=== PATIENT | female | born 1965 | race Hispanic/Latino ===

== ENCOUNTER 2018-05-19 11:25 | Observation (INO) | payer OTHER, MEDICARE ==
[~2018-05-19] VITALS: Ht 154.9 cm; Wt 91.8 kg
[~2018-05-19 11:25] MED LIST: ACET1TAB25 PO; ALPR2TAB7 PO; ARIP10TA16 PO; ASPI-1197 PO; FLUC200T8 PO; GLIP5TAB11 PO; INSU100I21 SQ; INSU200I SQ; ISOS30TA6 PO; METF-446 PO; METO-408 PO; NITR100C PO; OMEP20CA10 PO; PRAV20TA4 PO; PREG75 PO; TAMS0.4C32 PO; TRAM50TA4 PO; TRAZ-185 PO
[2018-05-19 12:11] LABS: APPEARANCE,URINE Cloudy (CLEAR); BILIRUBIN,URINE Negative (NEGATIVE); COLOR,URINE Yellow (YELLOW); GLUCOSE, URINE (UA) 500 mg/dL (NEGATIVE); KETONES,URINE Negative (NEGATIVE); LEUKOCYTE ESTERASE ,URINE Large (NEGATIVE); NITRATE,URINE Negative (NEGATIVE); OCCULT BLOOD,URINE Large (NEGATIVE); PROTEIN,URINE POS 1+ (NEGATIVE); UROBILINOGEN,URINE 0.2 mg/dL (0.2-1.0)
[2018-05-19 12:21] LABS: BACTERIA,URINE Rare /HPF (None Seen); MUCUS,URINE Rare LPF (None Seen); SQUAMOUS EPITHELIAL CELL,UR Rare /HPF (0-2); WBC,URINE 51-100 /HPF (0-1); YEAST,URINE BUDDING Few /HPF (None Seen)
[2018-05-19 15:31] LABS: CREATININE 0.6 mg/dL (0.5-1.5); POTASSIUM 3.7 mmol/L (3.5-5.1)
[2018-05-19 15:33] LABS: ALBUMIN 3.2 g/dL (3.5-5.0); BILIRUBIN,TOTAL 0.7 mg/dL (0.2-1.0); TOTAL PROTEIN, SERUM 7.2 g/dL (6.0-8.3)
[2018-05-19 15:47] LABS: BASOPHILS % (AUTO) 0.8 % (0.0-5.0); EOSINOPHILS % (AUTO) 2.6 % (0.0-8.0); HEMATOCRIT 37.1 % (36-48); LYMPHOCYTES % (AUTO) 46.3 % (21.0-51.0); MEAN CORPUSCULAR HEMOGLOBIN 30.5 pg (27.0-33.0); MEAN CORPUSCULAR HGB CONC 33.8 g/dL (32.0-36.0); MEAN CORPUSCULAR VOLUME 90.2 fL (79-99); MONOCYTES % (AUTO) 8.3 % (3.0-13.0); PLATELET COUNT (AUTO) 125 K/uL (130-400); RED BLOOD CELL COUNT(AUTO) 4.12 MIL/uL (4.00-5.50); RED CELL DISTRIBUTION WIDTH 13.6 % (11.0-15.5); WHITE BLOOD COUNT (AUTO) 7.4 K/uL (4.8-10.8)
[2018-05-19] MEDS ORDERED: IOHEXOL-350 75 ML VIAL IV ONE (16:10)
[2018-05-19] MEDS ORDERED: CEFTRIAXONE SODIUM 1 GM ONE (17:19)
[2018-05-19] MEDS ORDERED: TAMSULOSIN HCL 0.4 MG CAP.ER.24H ONE (17:19)
[2018-05-19] MEDS ORDERED: SODIUM CHLORIDE 0.9% 1000ML 1,000 ML IV ONE (17:19)
[2018-05-19 18:49] VITALS: BP 134/61
[2018-05-19] MEDS ORDERED: 1/2 NORMAL SALINE 1,000 ML IV SCH (19:00)
[2018-05-19 19:20] VITALS: BP 132/86
[2018-05-19] MEDS: ACETAMINOPHEN 325 MG TAB PO PRN (20:27)
[2018-05-19] MEDS ORDERED: TRAMADOL HCL 50 MG TABLET PO SCH (20:30)
[2018-05-19] MEDS ORDERED: BUSP10TA3 PO (20:33)
[2018-05-19] MEDS ORDERED: CEPH500C2 PO (20:33)
[2018-05-19] MEDS ORDERED: EXEN2PEN SQ (20:39)
[2018-05-19] MEDS ORDERED: INSU100I24 SQ (20:39)
[2018-05-19] MEDS ORDERED: INSULIN LISPRO 100 UNIT/ML 3ML SQ SCH (21:00)
[2018-05-19] MEDS ORDERED: ATORVASTATIN CALCIUM 10 MG TABLET PO SCH (21:00)
[2018-05-19] MEDS: BUSPIRONE HCL 5 MG TABLET PO SCH (22:34)
[2018-05-19] MEDS: METOPROLOL TARTRATE 25 MG TAB PO SCH (22:34)
[2018-05-19 23:10] VITALS: BP 110/67
[2018-05-20] VITALS (23 sets, daily range): BP systolic 105–151; BP diastolic 44–89
[2018-05-20] MEDS: INSULIN LISPRO 100 UNIT/ML 3ML SQ SCH ×2 (06:41→16:30)
[2018-05-20] MEDS: METFORMIN HCL 500 MG TABLET PO SCH ×2 (08:00→17:00)
[2018-05-20] MEDS: METOPROLOL TARTRATE 25 MG TAB PO SCH (08:14)
[2018-05-20] MEDS: BUSPIRONE HCL 5 MG TABLET PO SCH (08:40)
[2018-05-20] MEDS: ACETAMINOPHEN 325 MG TAB PO PRN ×2 (08:45→13:33)
[2018-05-20] MEDS ORDERED: ASPIRIN 81MG TAB.CHEW PO SCH (09:00)
[2018-05-20] MEDS ORDERED: CEFTRIAXONE SODIUM 1 GM IVP SCH (09:00)
[2018-05-20] MEDS ORDERED: Insulin Degludec (Tresiba Flextouch U-100) SQ SCH (09:00)
[2018-05-20] MEDS ORDERED: ISOSORBIDE MONO 30MG TAB SR PO SCH (09:00)
[2018-05-20] MEDS ORDERED: SODIUM CHLORIDE 0.9% 1000ML 1,000 ML IV ONE (09:57)
[2018-05-20] MEDS ORDERED: LIDOCAINE PF 2% 5ML ABBOJECT ONE (10:13)
[2018-05-20] MEDS ORDERED: FENTANYL CITRATE PF 50 MCG/1 ML 2ML VIAL ONE (10:13)
[2018-05-20] MEDS ORDERED: MIDAZOLAM HCL 1 MG/ML 2ML VIAL ONE (10:13)
[2018-05-20] MEDS ORDERED: SUCCINYLCHOLINE CHLORIDE 20 MG/ML 10 ML VIAL ONE (10:13)
[2018-05-20] MEDS ORDERED: ROCURONIUM BROMIDE 10MG/1ML 5ML VL ONE (10:13)
[2018-05-20] MEDS ORDERED: PROPOFOL 10 MG/ML 20ML VIAL IV ONE (10:13)
[2018-05-20] MEDS ORDERED: IOHEXOL-350 50ML VIAL IV ONE (10:33)
[2018-05-20] MEDS ORDERED: EPHEDRINE SULFATE 50 MG/ML AMPULE ONE (10:35)
[2018-05-20] MEDS ORDERED: MORPHINE SULFATE 4 MG/1ML SYG ONE (11:23)
[2018-05-21] MEDS ORDERED: PRAV20TA4 PO (11:54)
[2018-05-21] MEDS ORDERED: PREG150C PO (11:54)
[2018-05-21] MEDS ORDERED: TYL3 PO (11:54)
[2018-05-21] MEDS ORDERED: ISOS10TA8 PO (11:54)
[2018-05-21] MEDS ORDERED: ASPI-555 PO (11:54)
[2018-05-21] MEDS ORDERED: CEPH-578 PO (11:54)
[2018-05-21] MEDS ORDERED: BUSP10TA3 PO (11:54)
[2018-05-21] MEDS ORDERED: EXEN2PEN SQ (11:54)
[2018-05-21] MEDS ORDERED: TAMS0.4C32 PO (11:54)
[2018-05-21] MEDS ORDERED: INSU100I24 SQ (11:54)
[2018-05-21] MEDS ORDERED: METF-446 PO (11:54)
[2018-05-21] MEDS ORDERED: METO-408 PO (11:54)
[2018-05-26] MEDS ORDERED: Exenatide Microspheres (Bydureon Pen) 2 MG SQ SCH (09:00)
== END 2018-05-20 18:00 | disposition home or self-care (01) ==
LOC: EDH 11:25 → 4BH 17:20
PROVIDERS: ADMIT Internal Medicine; ATTEND Internal Medicine
DX: N13.2 Hydronephrosis with renal and ureteral calculous obstruction (principal); R31.0 Gross hematuria; E11.9 Type 2 diabetes mellitus without complications; I10 Essential (primary) hypertension; E78.5 Hyperlipidemia, unspecified; E66.9 Obesity, unspecified; I25.10 Atherosclerotic heart disease of native coronary artery without angina pectoris; J44.9 Chronic obstructive pulmonary disease, unspecified; M79.7 Fibromyalgia; Z87.442 Personal history of urinary calculi; Z90.710 Acquired absence of both cervix and uterus; Z96.653 Presence of artificial knee joint, bilateral; Z79.899 Other long term (current) drug therapy
CPT/HCPCS: 36415; 52356; 74178; 74420; 80053; 81001; 82948 ×4; 85025; 87088; 96374; 99285; A4218; A4358; A6207; C1758; C1769; C1894; C2617; G0378 ×25; J0330; J0696 ×2; J2001; J2250; J2270; J2704; J3010; J3490 ×2; J7030 ×3; Q9967 ×2

== ENCOUNTER 2018-05-21 10:50 | Inpatient (IN) | payer OTHER, MEDICARE ==
[~2018-05-21] VITALS: Ht 154.9 cm; Wt 94.0 kg
[~2018-05-21 10:50] MED LIST changes: -ACET1TAB25 PO; -ALPR2TAB7 PO; -ARIP10TA16 PO; +BUSP10TA3 PO; +CEPH500C2 PO; +EXEN2PEN SQ; -FLUC200T8 PO; -GLIP5TAB11 PO; -INSU100I21 SQ; +INSU100I24 SQ; -INSU200I SQ; -NITR100C PO; -OMEP20CA10 PO; -PREG75 PO; -TAMS0.4C32 PO; -TRAM50TA4 PO; -TRAZ-185 PO
[2018-05-21 11:41] VITALS: BP 128/85
[2018-05-21] MEDS ORDERED: CEPH-578 PO (11:54)
[2018-05-21] MEDS ORDERED: PREG150C PO (11:54)
[2018-05-21] MEDS ORDERED: ISOS10TA8 PO (11:54)
[2018-05-21] MEDS ORDERED: PRAV20TA4 PO (11:54)
[2018-05-21] MEDS ORDERED: ASPI-555 PO (11:54)
[2018-05-21] MEDS ORDERED: METO-408 PO (11:54)
[2018-05-21] MEDS ORDERED: BUSP10TA3 PO (11:54)
[2018-05-21] MEDS ORDERED: TAMS0.4C32 PO (11:54)
[2018-05-21] MEDS ORDERED: EXEN2PEN SQ (11:54)
[2018-05-21] MEDS ORDERED: METF-446 PO (11:54)
[2018-05-21] MEDS ORDERED: INSU100I24 SQ (11:54)
[2018-05-21] MEDS ORDERED: TYL3 PO (11:54)
[2018-05-21] MEDS ORDERED: DIPHENHYDRAMINE HCL 25 MG CAPSULE PO PRN (12:00)
[2018-05-21] MEDS ORDERED: ONDANSETRON HCL 4 MG/2 ML VIAL IVP PRN (12:00)
[2018-05-21] MEDS ORDERED: ACETAMINOPHEN 325 MG TAB PO PRN (12:00)
[2018-05-21] MEDS ORDERED: GUAIFENESIN-DM 200/20 MG 10 ML PO PRN (12:00)
[2018-05-21] MEDS ORDERED: ZOLPIDEM TARTRATE 5 MG TAB PO PRN (12:00)
[2018-05-21] MEDS ORDERED: SODIUM CHLORIDE 0.9% 10 ML VIAL IVP SCH (12:00)
[2018-05-21] MEDS ORDERED: NITROGLYCERIN 0.4 MG SL TAB SL PRN (12:00)
[2018-05-21] MEDS ORDERED: CLONIDINE HCL 0.1 MG TABLET PO PRN (12:00)
[2018-05-21] MEDS ORDERED: LACTULOSE 20 GM/30 ML UDCUP PO PRN (12:00)
[2018-05-21] MEDS ORDERED: 1/2 NORMAL SALINE 1,000 ML IV ONE (12:14)
[2018-05-21] MEDS ORDERED: DEXTROSE 50%-WATER 50 ML DISP.SYRIN IV PRN (12:15)
[2018-05-21] MEDS ORDERED: GLUCAGON 1MG KIT 1 MG ML IM PRN (12:15)
[2018-05-21 12:24] LABS: BASOPHILS % (AUTO) 0.4 % (0.0-5.0); EOSINOPHILS % (AUTO) 0.1 % (0.0-8.0); HEMATOCRIT 40.7 % (36-48); LYMPHOCYTES % (AUTO) 7.2 % (21.0-51.0); MEAN CORPUSCULAR HEMOGLOBIN 30.7 pg (27.0-33.0); MEAN CORPUSCULAR HGB CONC 34.2 g/dL (32.0-36.0); MEAN CORPUSCULAR VOLUME 89.8 fL (79-99); MONOCYTES % (AUTO) 6.1 % (3.0-13.0); NEUTROPHILS % (AUTO) 86.2 % (40.0-77.0); PLATELET COUNT (AUTO) 102 K/uL (130-400); RED BLOOD CELL COUNT(AUTO) 4.53 MIL/uL (4.00-5.50); RED CELL DISTRIBUTION WIDTH 13.5 % (11.0-15.5); WHITE BLOOD COUNT (AUTO) 7.8 K/uL (4.8-10.8)
[2018-05-21 12:54] LABS: APPEARANCE,URINE Cloudy (CLEAR); BILIRUBIN,URINE Small (NEGATIVE); COLOR,URINE Dark Yellow (YELLOW); GLUCOSE, URINE (UA) TRACE mg/dL (NEGATIVE); KETONES,URINE >=80 mg/dL (NEGATIVE); LEUKOCYTE ESTERASE ,URINE Moderate (NEGATIVE); NITRATE,URINE Negative (NEGATIVE); OCCULT BLOOD,URINE Large (NEGATIVE); PH,URINE 5.5 (5.0-8.0); PROTEIN,URINE 300 (NEGATIVE)
[2018-05-21 12:55] LABS: ALBUMIN 3.4 g/dL (3.5-5.0); BILIRUBIN,DIRECT 0.2 mg/dL (0.0-0.3); BILIRUBIN,TOTAL 0.9 mg/dL (0.2-1.0); CREATININE 0.8 mg/dL (0.5-1.5); POTASSIUM 3.9 mmol/L (3.5-5.1); TOTAL PROTEIN, SERUM 7.7 g/dL (6.0-8.3)
[2018-05-21] MEDS ORDERED: ACETAMINOPHEN-CODEINE 300/30MG TAB PO PRN (13:00)
[2018-05-21 13:06] LABS: RBC,URINE >100 /HPF (0-1)
[2018-05-21 13:07] LABS: BACTERIA,URINE Few /HPF (None Seen)
[2018-05-21 13:08] LABS: MUCUS,URINE Moderate LPF (None Seen); SQUAMOUS EPITHELIAL CELL,UR Moderate /HPF (0-2)
[2018-05-21 13:09] LABS: WBC,URINE 26-50 /HPF (0-1)
[2018-05-21] MEDS ORDERED: ACETAMINOPHEN-CODEINE 300/30MG TAB ONE (13:13)
[2018-05-21] MEDS: LEVOFLOXACIN 500 MG/D5W 100 ML 100 ML IV SCH (13:14)
[2018-05-21] MEDS: 1/2 NORMAL SALINE 1,000 ML IV SCH (13:18)
[2018-05-21 16:00] VITALS: BP 124/65
[2018-05-21] MEDS: INSULIN R PO SSI SQ SCH ×2 (16:30→21:00)
[2018-05-21] MEDS: METFORMIN HCL 500 MG TABLET PO SCH (17:00)
[2018-05-21] MEDS: MORPHINE SULFATE 5 MG/ML VIAL IV PRN ×2 (17:43→23:41)
[2018-05-21 20:00] VITALS: BP 146/84
[2018-05-21 20:12] VITALS: BP 115/82
[2018-05-21] MEDS: CEPHALEXIN 500 MG CAPSULE PO SCH (20:26)
[2018-05-21] MEDS: BUSPIRONE HCL 5 MG TABLET PO SCH (20:26)
[2018-05-21] MEDS: SIMVASTATIN 20 MG TABLET PO SCH (20:27)
[2018-05-21] MEDS: PREGABALIN 75 MG CAPSULE PO SCH (20:27)
[2018-05-21] MEDS: METOPROLOL TARTRATE 25 MG TAB PO SCH (20:27)
[2018-05-22 00:32] VITALS: BP 119/83
[2018-05-22] MEDS: 1/2 NORMAL SALINE 1,000 ML IV SCH ×2 (03:58→13:09)
[2018-05-22 04:30] LABS: BASOPHILS % (AUTO) 0.3 % (0.0-5.0); EOSINOPHILS % (AUTO) 0.1 % (0.0-8.0); HEMATOCRIT 40.2 % (36-48); LYMPHOCYTES % (AUTO) 15.9 % (21.0-51.0); MEAN CORPUSCULAR HEMOGLOBIN 29.4 pg (27.0-33.0); MEAN CORPUSCULAR HGB CONC 33.1 g/dL (32.0-36.0); MEAN CORPUSCULAR VOLUME 88.8 fL (79-99); MONOCYTES % (AUTO) 7.5 % (3.0-13.0); NEUTROPHILS % (AUTO) 76.2 % (40.0-77.0); NUCLEATED RED BLOOD CELLS 0.1 % (0.0-0.19); PLATELET COUNT (AUTO) 80 K/uL (130-400); RED BLOOD CELL COUNT(AUTO) 4.53 MIL/uL (4.00-5.50); RED CELL DISTRIBUTION WIDTH 13.4 % (11.0-15.5); WHITE BLOOD COUNT (AUTO) 6.7 K/uL (4.8-10.8)
[2018-05-22 04:32] VITALS: BP 129/86
[2018-05-22 05:11] LABS: BILIRUBIN,DIRECT 0.2 mg/dL (0.0-0.3); BILIRUBIN,TOTAL 0.8 mg/dL (0.2-1.0); CREATININE 0.6 mg/dL (0.5-1.5); POTASSIUM 3.6 mmol/L (3.5-5.1); TOTAL PROTEIN, SERUM 7.1 g/dL (6.0-8.3)
[2018-05-22] MEDS: MORPHINE SULFATE 5 MG/ML VIAL IV PRN (06:19)
[2018-05-22] MEDS: INSULIN R PO SSI SQ SCH ×4 (06:53→20:32)
[2018-05-22 08:00] VITALS: BP 142/86
[2018-05-22] MEDS: METFORMIN HCL 500 MG TABLET PO SCH ×3 (08:00→17:09)
[2018-05-22] MEDS: INSULIN DEGLUDEC 75 UNIT SQ SCH (08:00)
[2018-05-22] MEDS: CEPHALEXIN 500 MG CAPSULE PO SCH ×2 (09:00→20:26)
[2018-05-22] MEDS ORDERED: PANTOPRAZOLE 40 MG/VIAL IVP SCH (09:00)
[2018-05-22] MEDS: ISOSORBIDE MONONITRATE 10 MG PO SCH (09:00)
[2018-05-22] MEDS: METOPROLOL TARTRATE 25 MG TAB PO SCH ×2 (09:10→20:26)
[2018-05-22] MEDS: ENOXAPARIN SODIUM 30 MG/0.3 ML SQ SCH (09:10)
[2018-05-22] MEDS: TAMSULOSIN HCL 0.4 MG CAP.ER.24H PO SCH (09:10)
[2018-05-22] MEDS: ASPIRIN 81 MG EC TAB PO SCH (09:13)
[2018-05-22] MEDS: BUSPIRONE HCL 5 MG TABLET PO SCH ×2 (09:13→20:26)
[2018-05-22] MEDS: PREGABALIN 75 MG CAPSULE PO SCH ×2 (09:16→20:26)
[2018-05-22 11:00] VITALS: BP 110/77
[2018-05-22] MEDS: LEVOFLOXACIN 500 MG/D5W 100 ML 100 ML IV SCH (11:39)
[2018-05-22] MEDS ORDERED: KETOROLAC TROMETHAMINE 30MG/ML ONE (13:00)
[2018-05-22] MEDS ORDERED: KETOROLAC TROMETHAMINE 30MG/ML IV ONE (14:00)
[2018-05-22 16:00] VITALS: BP 115/68
[2018-05-22 20:00] VITALS: BP 127/79
[2018-05-22] MEDS: SIMVASTATIN 20 MG TABLET PO SCH (20:27)
[2018-05-23] VITALS: BP 123/81
[2018-05-23 04:00] VITALS: BP 114/77
[2018-05-23] MEDS: 1/2 NORMAL SALINE 1,000 ML IV SCH (04:05)
[2018-05-23 04:17] LABS: HEMATOCRIT 37.4 % (36-48); MEAN CORPUSCULAR HEMOGLOBIN 30.7 pg (27.0-33.0); MEAN CORPUSCULAR HGB CONC 34.1 g/dL (32.0-36.0); MEAN CORPUSCULAR VOLUME 89.8 fL (79-99); PLATELET COUNT (AUTO) 95 K/uL (130-400); RED BLOOD CELL COUNT(AUTO) 4.16 MIL/uL (4.00-5.50); RED CELL DISTRIBUTION WIDTH 13.5 % (11.0-15.5); WHITE BLOOD COUNT (AUTO) 6.3 K/uL (4.8-10.8)
[2018-05-23 04:24] LABS: CREATININE 0.7 mg/dL (0.5-1.5); POTASSIUM 3.3 mmol/L (3.5-5.1)
[2018-05-23] MEDS: MORPHINE SULFATE 5 MG/ML VIAL IV PRN ×2 (04:24→10:52)
[2018-05-23] MEDS: INSULIN R PO SSI SQ SCH (05:44)
[2018-05-23] MEDS ORDERED: POTASSIUM CHLORIDE 20 MEQ ERTAB PO ONE (06:11)
[2018-05-23] MEDS ORDERED: POTASSIUM CHLORIDE 20 MEQ ERTAB PO PRN (06:15)
[2018-05-23] MEDS ORDERED: POTASSIUM CHLORIDE 20MEQ/100ML 100 ML IV PRN (06:15)
[2018-05-23] MEDS ORDERED: LIDOCAINE HCL-MPF 1% 2ML VIAL IVP PRN (06:15)
[2018-05-23 08:00] VITALS: BP 128/85
[2018-05-23] MEDS: INSULIN DEGLUDEC 75 UNIT SQ SCH (08:00)
[2018-05-23] MEDS ORDERED: PANTOPRAZOLE SODIUM 40 MG TABLET.DR PO SCH (09:00)
[2018-05-23] MEDS: ISOSORBIDE MONONITRATE 10 MG PO SCH (09:00)
[2018-05-23] MEDS: BUSPIRONE HCL 5 MG TABLET PO SCH (09:15)
[2018-05-23] MEDS: METOPROLOL TARTRATE 25 MG TAB PO SCH (09:16)
[2018-05-23] MEDS: CEPHALEXIN 500 MG CAPSULE PO SCH (09:17)
[2018-05-23] MEDS: TAMSULOSIN HCL 0.4 MG CAP.ER.24H PO SCH (09:17)
[2018-05-23] MEDS: METFORMIN HCL 500 MG TABLET PO SCH (09:17)
[2018-05-23] MEDS: PREGABALIN 75 MG CAPSULE PO SCH (09:18)
[2018-05-23] MEDS: ASPIRIN 81 MG EC TAB PO SCH (09:18)
[2018-05-23] MEDS: ENOXAPARIN SODIUM 30 MG/0.3 ML SQ SCH (10:54)
[2018-05-23 11:00] VITALS: BP 105/56
[2018-05-23] MEDS: LEVOFLOXACIN 500 MG/D5W 100 ML 100 ML IV SCH (13:16)
[2018-05-28] MEDS ORDERED: Exenatide Microspheres (Bydureon Pen) 2 MG SQ SCH (09:00)
== END 2018-05-23 15:20 | disposition home or self-care (01) | DRG 699 ==
LOC: EDH 10:50 → 4BH 10:51 → OBSVTOIN 10:51 → 4CH 05-22 06:18
PROVIDERS: ADMIT Internal Medicine; ATTEND Internal Medicine
DX: N99.521 Infection of incontinent external stoma of urinary tract (principal); N12 Tubulo-interstitial nephritis, not specified as acute or chronic; E11.9 Type 2 diabetes mellitus without complications; E78.5 Hyperlipidemia, unspecified; I10 Essential (primary) hypertension; I25.10 Atherosclerotic heart disease of native coronary artery without angina pectoris; J44.9 Chronic obstructive pulmonary disease, unspecified; M79.7 Fibromyalgia; Z87.442 Personal history of urinary calculi; Z90.710 Acquired absence of both cervix and uterus; Y83.9 Surgical procedure, unspecified as the cause of abnormal reaction of the patient, or of later complication, without mention of misadventure at the time of the procedure
CPT/HCPCS: 36415; 76770; 80048; 80053; 80076; 81001; 82948; 85025; 85027; 87088; C9113; J1650; J1885; J1956; J2270

== ENCOUNTER 2018-12-27 19:58 | Emergency (ER) | payer OTHER, MEDICARE ==
[~2018-12-27 19:58] MED LIST changes: +ASPI-555 PO; +CEPH-578 PO; +ISOS10TA8 PO; +PREG150C PO; +TAMS0.4C32 PO; +TYL3 PO
[2018-12-27 20:41] LABS: INR 1.02 (0.85-1.15); PARTIAL THROMBOPLASTIN TIME 26.8 SEC (26.3-35.5); PROTHROMBIN TIME 10.7 SEC (9.6-11.6)
[2018-12-27 20:44] LABS: BASOPHILS % (AUTO) 0.7 % (0.0-5.0); EOSINOPHILS % (AUTO) 3.9 % (0.0-8.0); HEMATOCRIT 40.6 % (36-48); MEAN CORPUSCULAR HEMOGLOBIN 30.2 pg (27.0-33.0); MEAN CORPUSCULAR HGB CONC 33.6 g/dL (32.0-36.0); MEAN CORPUSCULAR VOLUME 89.8 fL (79-99); MONOCYTES % (AUTO) 7.4 % (3.0-13.0); NUCLEATED RED BLOOD CELLS 0.1 % (0.0-0.19); PLATELET COUNT (AUTO) 132 K/uL (130-400); RED BLOOD CELL COUNT(AUTO) 4.52 MIL/uL (4.00-5.50); RED CELL DISTRIBUTION WIDTH 13.4 % (11.0-15.5); WHITE BLOOD COUNT (AUTO) 6.7 K/uL (4.8-10.8)
[2018-12-27 20:49] LABS: CREATININE 0.8 mg/dL (0.5-1.5); POTASSIUM 3.6 mmol/L (3.5-5.1)
[2018-12-27 20:54] LABS: ALBUMIN 3.7 g/dL (3.5-5.0); BILIRUBIN,TOTAL 0.9 mg/dL (0.2-1.0); TOTAL PROTEIN, SERUM 7.9 g/dL (6.0-8.3)
[2018-12-27] MEDS ORDERED: KETOROLAC TROMETHAMINE 30MG/ML ONE (21:04)
[2018-12-27] MEDS ORDERED: FAMOTIDINE/PF 20 MG/2 ML VIAL IV ONE (21:04)
[2018-12-27 22:23] LABS: APPEARANCE,URINE Clear (CLEAR); BILIRUBIN,URINE Negative (NEGATIVE); COLOR,URINE Yellow (YELLOW); GLUCOSE, URINE (UA) 250 mg/dL (NEGATIVE); KETONES,URINE Negative (NEGATIVE); LEUKOCYTE ESTERASE ,URINE Negative (NEGATIVE); NITRATE,URINE Negative (NEGATIVE); OCCULT BLOOD,URINE Negative (NEGATIVE); PROTEIN,URINE Negative (NEGATIVE)
[2018-12-27 22:45] LABS: BACTERIA,URINE None Seen /HPF (None Seen); MUCUS,URINE Rare LPF (None Seen); RBC,URINE None Seen /HPF (0-1); SQUAMOUS EPITHELIAL CELL,UR Few /HPF (0-2); WBC,URINE None Seen /HPF (0-1); YEAST,URINE BUDDING None Seen /HPF (None Seen)
[2018-12-27] MEDS ORDERED: METOCLOPRAMIDE 10 MG/2 ML VIAL ONE (22:53)
[2018-12-27] MEDS ORDERED: DiphenhydrAMINE HCL 50 MG/ML VIAL ONE (22:54)
== END 2018-12-27 23:40 | disposition home or self-care (01) ==
LOC: EDH 19:58
DX: M54.5 Low back pain (principal); R10.13 Epigastric pain; E11.9 Type 2 diabetes mellitus without complications; E78.5 Hyperlipidemia, unspecified; I10 Essential (primary) hypertension; M79.7 Fibromyalgia; Z98.890 Other specified postprocedural states; Z87.442 Personal history of urinary calculi; Z90.710 Acquired absence of both cervix and uterus; Z90.49 Acquired absence of other specified parts of digestive tract
CPT/HCPCS: 36415; 74176; 80053; 81001; 82550; 83605; 83690; 84484; 85025; 85610; 85730; 96361; 96374; 96375; 99285; J1200; J1885; J2765; J3490

== ENCOUNTER → 2019-03-18 | Outpatient (CLI) | payer OTHER, MEDICARE | END | disposition home or self-care (01) | LOC: RAH 11:12 | PROVIDERS: ATTEND Orthopaedic Surgery | DX: M79.89 Other specified soft tissue disorders (principal); Z96.652 Presence of left artificial knee joint | CPT/HCPCS: 73700 ==

== ENCOUNTER 2019-06-18 12:33 | Emergency (ER) | payer OTHER, MEDICARE ==
[2019-06-18] MEDS ORDERED: ONDANSETRON HCL 4 MG/2 ML VIAL ONE (13:14)
[2019-06-18] MEDS ORDERED: KETOROLAC TROMETHAMINE 30MG/ML ONE (13:14)
[2019-06-18] MEDS ORDERED: SODIUM CHLORIDE 0.9% 1000ML 1,000 ML IV ONE (13:14)
[2019-06-18] MEDS ORDERED: ACETAMINOPHEN EXTRA STRENGTH 500 MG TABLET ONE (13:14)
[2019-06-18 13:16] LABS: CREATININE 0.7 mg/dL (0.5-1.5); POTASSIUM 4.2 mmol/L (3.5-5.1)
[2019-06-18 13:17] LABS: APPEARANCE,URINE Clear (CLEAR); BILIRUBIN,URINE Negative (NEGATIVE); COLOR,URINE Yellow (YELLOW); GLUCOSE, URINE (UA) >=1000 mg/dL (NEGATIVE); KETONES,URINE Negative (NEGATIVE); LEUKOCYTE ESTERASE ,URINE Negative (NEGATIVE); NITRATE,URINE Negative (NEGATIVE); OCCULT BLOOD,URINE Negative (NEGATIVE); PROTEIN,URINE Negative (NEGATIVE); UROBILINOGEN,URINE 0.2 mg/dL (0.2-1.0)
[2019-06-18 13:20] LABS: ALBUMIN 3.5 g/dL (3.5-5.0); BILIRUBIN,TOTAL 0.6 mg/dL (0.2-1.0); TOTAL PROTEIN, SERUM 7.8 g/dL (6.0-8.3)
[2019-06-18 13:34] LABS: EOSINOPHILS % (AUTO) 1.8 % (0.0-8.0); HEMATOCRIT 41.8 % (36-48); LYMPHOCYTES % (AUTO) 37.1 % (21.0-51.0); MEAN CORPUSCULAR HEMOGLOBIN 29.6 pg (27.0-33.0); MEAN CORPUSCULAR HGB CONC 33.6 g/dL (32.0-36.0); MEAN CORPUSCULAR VOLUME 88.1 fL (79-99); MONOCYTES % (AUTO) 6.2 % (3.0-13.0); NEUTROPHILS % (AUTO) 53.9 % (40.0-77.0); PLATELET COUNT (AUTO) 125 K/uL (130-400); RED BLOOD CELL COUNT(AUTO) 4.75 MIL/uL (4.00-5.50); RED CELL DISTRIBUTION WIDTH 12.9 % (11.0-15.5); WHITE BLOOD COUNT (AUTO) 6.8 K/uL (4.8-10.8)
[2019-06-18 13:43] LABS: BACTERIA,URINE Few /HPF (None Seen); RBC,URINE 0-1 /HPF (0-1); WBC,URINE 0-1 /HPF (0-1)
[2019-06-18] MEDS ORDERED: ORPHENADRINE CITRATE 30 MG/ML ML ONE (15:11)
== END 2019-06-18 15:41 | disposition home or self-care (01) ==
LOC: EDH 12:33
DX: R10.9 Unspecified abdominal pain (principal); E11.9 Type 2 diabetes mellitus without complications; E78.5 Hyperlipidemia, unspecified; I10 Essential (primary) hypertension; Z87.442 Personal history of urinary calculi; Z87.891 Personal history of nicotine dependence
CPT/HCPCS: 36415; 74176; 80053; 81001; 83690; 85025; 93005; 96372; 96374; 96375; 99285; J1885; J2360; J2405; J7030

== ENCOUNTER 2019-10-02 09:19 | Emergency (ER) | payer OTHER, MEDICARE ==
[2019-10-02 09:59] LABS: BASOPHILS % (AUTO) 0.8 % (0.0-5.0); EOSINOPHILS % (AUTO) 2.3 % (0.0-8.0); HEMATOCRIT 39.3 % (36-48); LYMPHOCYTES % (AUTO) 41.4 % (21.0-51.0); MEAN CORPUSCULAR HEMOGLOBIN 28.2 pg (27.0-33.0); MEAN CORPUSCULAR HGB CONC 32.3 g/dL (32.0-36.0); MEAN CORPUSCULAR VOLUME 87.1 fL (79-99); MONOCYTES % (AUTO) 7.7 % (3.0-13.0); NEUTROPHILS % (AUTO) 47.6 % (40.0-77.0); PLATELET COUNT (AUTO) 135 K/uL (130-400); RED BLOOD CELL COUNT(AUTO) 4.51 MIL/uL (4.00-5.50); WHITE BLOOD COUNT (AUTO) 6.1 K/uL (4.8-10.8)
[2019-10-02 10:10] LABS: CREATININE 0.5 mg/dL (0.5-1.5)
[2019-10-02 10:14] LABS: ALBUMIN 3.9 g/dL (3.5-5.0); BILIRUBIN,TOTAL 0.9 mg/dL (0.2-1.0)
[2019-10-02] MEDS ORDERED: KETOROLAC TROMETHAMINE 15MG/ML ONE (10:57)
[2019-10-02] MEDS ORDERED: ONDANSETRON HCL 4 MG/2 ML VIAL ONE (10:57)
[2019-10-02 11:01] LABS: APPEARANCE,URINE CLEAR (CLEAR); BILIRUBIN,URINE NEGATIVE (NEGATIVE); COLOR,URINE YELLOW (YELLOW); GLUCOSE, URINE (UA) NEGATIVE (NEGATIVE); KETONES,URINE NEGATIVE (NEGATIVE); LEUKOCYTE ESTERASE ,URINE NEGATIVE (NEGATIVE); NITRATE,URINE NEGATIVE (NEGATIVE); OCCULT BLOOD,URINE NEGATIVE (NEGATIVE); PH,URINE 6.5 (5.0-8.0); PROTEIN,URINE NEGATIVE (NEGATIVE); UROBILINOGEN,URINE 0.2 mg/dL (0.2-1.0)
[2019-10-02] MEDS ORDERED: SODIUM CHLORIDE 0.9% 1000ML 1,000 ML IV ONE (11:01)
== END 2019-10-02 12:15 | disposition home or self-care (01) ==
LOC: EDH 09:19
DX: N20.0 Calculus of kidney (principal); E11.9 Type 2 diabetes mellitus without complications; I10 Essential (primary) hypertension; M79.7 Fibromyalgia; E78.5 Hyperlipidemia, unspecified; M81.0 Age-related osteoporosis without current pathological fracture; Z90.710 Acquired absence of both cervix and uterus
CPT/HCPCS: 36415; 74176; 80053; 81003; 81025; 83690; 84484; 85025; 93005; 96374; 96375; 99285; J1885; J2405; J7030

== ENCOUNTER 2020-04-30 18:13 | Emergency (ER) | payer OTHER, MEDICARE ==
[~2020-04-30 18:13] MED LIST changes: -ASPI-555 PO; +ASPI-556 PO
[2020-04-30] MEDS ORDERED: SODIUM CHLORIDE 0.9% 1000ML 1,000 ML IV ONE (18:14)
[2020-04-30] MEDS ORDERED: ASPIRIN 325 MG TABLET ONE (18:25)
[2020-04-30 18:29] LABS: BASOPHILS % (AUTO) 1.1 % (0.0-5.0); EOSINOPHILS % (AUTO) 2.6 % (0.0-8.0); HEMATOCRIT 40.3 % (36-48); LYMPHOCYTES % (AUTO) 44.8 % (21.0-51.0); MEAN CORPUSCULAR HEMOGLOBIN 29.3 pg (27.0-33.0); MEAN CORPUSCULAR HGB CONC 32.3 g/dL (32.0-36.0); MEAN CORPUSCULAR VOLUME 90.8 fL (79-99); MONOCYTES % (AUTO) 7.1 % (3.0-13.0); NEUTROPHILS % (AUTO) 44.3 % (40.0-77.0); PLATELET COUNT (AUTO) 136 K/uL (130-400); RED BLOOD CELL COUNT(AUTO) 4.44 MIL/uL (4.00-5.50); RED CELL DISTRIBUTION WIDTH 13.3 % (11.0-15.5); WHITE BLOOD COUNT (AUTO) 7.4 K/uL (4.8-10.8)
[2020-04-30 18:54] LABS: CREATININE 0.7 mg/dL (0.5-1.5); POTASSIUM 4.2 mmol/L (3.5-5.1)
[2020-04-30 18:56] LABS: INR 0.99 (0.85-1.15); PARTIAL THROMBOPLASTIN TIME 24.5 SEC (26.3-35.5); PROTHROMBIN TIME 10.7 SEC (9.6-11.6)
[2020-04-30 18:58] LABS: ALBUMIN 3.9 g/dL (3.5-5.0); BILIRUBIN,TOTAL 0.5 mg/dL (0.2-1.0); TOTAL PROTEIN, SERUM 8.1 g/dL (6.0-8.3)
[2020-04-30] MEDS ORDERED: IOHEXOL-350 75 ML VIAL IV ONE (19:17)
[2020-04-30] MEDS ORDERED: MAG HYDROX/AL HYDROX/SIMETH ES 30 ML SUSP UDCUP ONE (20:31)
[2020-04-30] MEDS ORDERED: LIDOCAINE HCL 2% VISCOUS 15 ML UDCUP ONE (20:31)
== END 2020-04-30 21:26 | disposition home or self-care (01) ==
LOC: EDH 18:13
DX: R10.84 Generalized abdominal pain (principal); E11.9 Type 2 diabetes mellitus without complications; E78.5 Hyperlipidemia, unspecified; I10 Essential (primary) hypertension; M19.90 Unspecified osteoarthritis, unspecified site; Z90.49 Acquired absence of other specified parts of digestive tract; Z90.710 Acquired absence of both cervix and uterus; Z98.890 Other specified postprocedural states
CPT/HCPCS: 36415; 71045; 74177; 80053; 82550; 83690; 84484 ×2; 85025; 85610; 85730; 93005 ×2; 96360; 96361; 99285; J7030; Q9967

== ENCOUNTER → 2020-05-28 | Outpatient (CLI) | payer OTHER, MEDICARE | END | disposition home or self-care (01) | LOC: OIH 14:47 | PROVIDERS: ATTEND Internal Medicine | DX: R10.13 Epigastric pain (principal); R07.9 Chest pain, unspecified; M47.814 Spondylosis without myelopathy or radiculopathy, thoracic region | CPT/HCPCS: 71046; 71110 ==

== ENCOUNTER → 2021-02-24 | Outpatient (CLI) | payer OTHER, MEDICARE ==
[~2021-02-24] MED LIST changes: -ISOS30TA6 PO; +ISOS30TA92 PO
== END | disposition home or self-care (01) ==
LOC: RAH 08:52
PROVIDERS: ATTEND Internal Medicine Gastroenterology
DX: N28.1 Cyst of kidney, acquired (principal); N28.89 Other specified disorders of kidney and ureter; B18.2 Chronic viral hepatitis C; K76.9 Liver disease, unspecified
CPT/HCPCS: 76700; 93975

== ENCOUNTER 2021-08-05 10:34 | Emergency (ER) | payer OTHER, MEDICARE ==
[~2021-08-05] VITALS: Ht 154.9 cm; Wt 86.2 kg
[2021-08-05 11:52] LABS: BASOPHILS % (AUTO) 0.8 % (0.0-5.0); EOSINOPHILS % (AUTO) 2.7 % (0.0-8.0); HEMATOCRIT 39.4 % (36-48); LYMPHOCYTES % (AUTO) 46.3 % (21.0-51.0); MEAN CORPUSCULAR HEMOGLOBIN 29.3 pg (27.0-33.0); MEAN CORPUSCULAR VOLUME 88.9 fL (79-99); MONOCYTES % (AUTO) 7.7 % (3.0-13.0); NEUTROPHILS % (AUTO) 42.2 % (40.0-77.0); PLATELET COUNT (AUTO) 125 K/uL (130-400); RED BLOOD CELL COUNT(AUTO) 4.43 MIL/uL (4.00-5.50); RED CELL DISTRIBUTION WIDTH 12.7 % (11.0-15.5); WHITE BLOOD COUNT (AUTO) 6.3 K/uL (4.8-10.8)
[2021-08-05 11:58] LABS: APPEARANCE,URINE Clear (CLEAR); BILIRUBIN,URINE Negative (NEGATIVE); COLOR,URINE Yellow (YELLOW); GLUCOSE, URINE (UA) >=1000 mg/dL (NEGATIVE); KETONES,URINE Negative (NEGATIVE); LEUKOCYTE ESTERASE ,URINE Trace (NEGATIVE); NITRATE,URINE Negative (NEGATIVE); OCCULT BLOOD,URINE Negative (NEGATIVE); PH,URINE 5.5 (5.0-8.0); PROTEIN,URINE Negative (NEGATIVE)
[2021-08-05] MEDS ORDERED: KETOROLAC 15MG/ML VIAL (15MG/ML) IM SCH (12:00)
[2021-08-05 12:04] LABS: CREATININE 0.6 mg/dL (0.5-1.5)
[2021-08-05 12:09] LABS: ALBUMIN 3.8 g/dL (3.5-5.0); BILIRUBIN,TOTAL 0.9 mg/dL (0.2-1.0); TOTAL PROTEIN, SERUM 7.9 g/dL (6.0-8.3)
[2021-08-05 12:16] LABS: BACTERIA,URINE Rare /HPF (None Seen); MUCUS,URINE Moderate LPF (None Seen); RBC,URINE 0-1 /HPF (0-1); SQUAMOUS EPITHELIAL CELL,UR Moderate /HPF (0-2); WBC,URINE 51-100 /HPF (0-1)
[2021-08-05] MEDS ORDERED: ACET1TAB25 PO (13:25)
[2021-08-05] MEDS ORDERED: CEPH500B PO (13:25)
[2021-08-05] MEDS ORDERED: CEFTRIAXONE 1G VIAL IM ONE (13:30)
[2021-08-05 14:40] VITALS: BP 102/70
== END 2021-08-05 14:41 | disposition home or self-care (01) ==
LOC: EDH 10:34
DX: N20.0 Calculus of kidney (principal); N39.0 Urinary tract infection, site not specified; E11.9 Type 2 diabetes mellitus without complications; E78.00 Pure hypercholesterolemia, unspecified; I10 Essential (primary) hypertension; M79.7 Fibromyalgia; Z79.4 Long term (current) use of insulin; Z79.82 Long term (current) use of aspirin; Z79.899 Other long term (current) drug therapy
CPT/HCPCS: 36415; 74176; 80053; 81001; 85025; 87088; 96372 ×2; 99284; J0696; J1885

== ENCOUNTER → 2021-09-30 | Outpatient (CLI) | payer OTHER, MEDICARE ==
[~2021-09-30] MED LIST changes: +ACET1TAB25 PO; +CEPH500B PO
== END | disposition home or self-care (01) ==
LOC: RAH 07:41
PROVIDERS: ATTEND Internal Medicine Gastroenterology
DX: K76.0 Fatty (change of) liver, not elsewhere classified (principal); N28.1 Cyst of kidney, acquired
CPT/HCPCS: 76700; 93975

== ENCOUNTER → 2022-03-25 | Outpatient (CLI) | payer OTHER, MEDICARE ==
[~2022-03-25] MED LIST changes: +ACET-2079 PO; -ACET1TAB25 PO
[2022-03-25 09:55] LABS: BASOPHILS % (AUTO) 0.8 % (0.0-5.0); EOSINOPHILS % (AUTO) 3.3 % (0.0-8.0); HEMATOCRIT 39.9 % (36-48); LYMPHOCYTES % (AUTO) 39.8 % (21.0-51.0); MEAN CORPUSCULAR HEMOGLOBIN 29.6 pg (27.0-33.0); MEAN CORPUSCULAR HGB CONC 33.3 g/dL (32.0-36.0); MEAN CORPUSCULAR VOLUME 88.7 fL (79-99); MONOCYTES % (AUTO) 7.7 % (3.0-13.0); NEUTROPHILS % (AUTO) 48.2 % (40.0-77.0); PLATELET COUNT (AUTO) 117 K/uL (130-400); RED CELL DISTRIBUTION WIDTH 13.2 % (11.0-15.5); WHITE BLOOD COUNT (AUTO) 5.2 K/uL (4.8-10.8)
[2022-03-25 10:07] LABS: INR 1.05 (0.85-1.15); PROTHROMBIN TIME 11.4 SEC (9.6-11.6)
[2022-03-25 10:11] LABS: ALBUMIN 3.6 g/dL (3.5-5.0); CREATININE 0.6 mg/dL (0.5-1.5); POTASSIUM 3.9 mmol/L (3.5-5.1); TOTAL PROTEIN, SERUM 7.7 g/dL (6.0-8.3)
== END | disposition home or self-care (01) ==
LOC: RAH 08:36
PROVIDERS: ATTEND Internal Medicine Gastroenterology
DX: K74.60 Unspecified cirrhosis of liver (principal); K76.9 Liver disease, unspecified; N20.0 Calculus of kidney
CPT/HCPCS: 36415; 76700; 80053; 82105; 85025; 85610

== ENCOUNTER 2022-05-07 18:20 | Emergency (ER) | payer OTHER, MEDICARE ==
[~2022-05-07] VITALS: Ht 154.9 cm; Wt 87.5 kg
[2022-05-07] MEDS ORDERED: HYDROCODONE/ACETAMINOPHEN 10/325 MG TAB PO ONE (19:30)
[2022-05-07] MEDS ORDERED: TETANUS/DIPHTHERIA TOXOID [ADULT] 0.5 ML VIAL IM ONE ×2 (19:30→19:47)
[2022-05-07] MEDS ORDERED: HYDROCODONE/ACETAMINOPHEN 10/325 MG TAB ONE (19:47)
[2022-05-07] MEDS ORDERED: TRAM1TAB2 PO (20:07)
[2022-05-07] MEDS ORDERED: CEPH500B PO (20:07)
[2022-05-07 20:17] VITALS: BP 109/70
== END 2022-05-07 20:37 | disposition home or self-care (01) ==
LOC: EDH 18:20
DX: S40.011A Contusion of right shoulder, initial encounter (principal); S50.01XA Contusion of right elbow, initial encounter; S80.01XA Contusion of right knee, initial encounter; S60.221A Contusion of right hand, initial encounter; E11.9 Type 2 diabetes mellitus without complications; E78.00 Pure hypercholesterolemia, unspecified; I10 Essential (primary) hypertension; M79.7 Fibromyalgia; E66.01 Morbid (severe) obesity due to excess calories; Z68.36 Body mass index [BMI] 36.0-36.9, adult; Z79.82 Long term (current) use of aspirin; Z79.899 Other long term (current) drug therapy; Z79.4 Long term (current) use of insulin; Z79.84 Long term (current) use of oral hypoglycemic drugs; Z98.890 Other specified postprocedural states; W18.09XA Striking against other object with subsequent fall, initial encounter; Y93.89 Activity, other specified; Y92.89 Other specified places as the place of occurrence of the external cause; Y99.8 Other external cause status
CPT/HCPCS: 73030; 73070; 73100; 73130; 73562; 90471; 90714

== ENCOUNTER → 2023-04-13 | Outpatient (CLI) | payer OTHER, MEDICARE ==
[~2023-04-13] MED LIST changes: +TRAM1TAB2 PO
== END | disposition home or self-care (01) ==
LOC: SHCH 09:52
PROVIDERS: ATTEND Internal Medicine
DX: I73.9 Peripheral vascular disease, unspecified (principal)
CPT/HCPCS: 93925

== ENCOUNTER 2024-01-14 19:11 | Inpatient (IN) | payer OTHER, MEDICARE ==
[~2024-01-14] VITALS: Ht 154.9 cm; Wt 72.0 kg
[2024-01-14 21:30] LABS: APPEARANCE,URINE CLEAR (CLEAR); BILIRUBIN,URINE NEGATIVE (NEGATIVE); COLOR,URINE YELLOW (YELLOW); GLUCOSE, URINE (UA) NEGATIVE (NEGATIVE); KETONES,URINE NEGATIVE (NEGATIVE); LEUKOCYTE ESTERASE ,URINE 250 Leu/uL (NEGATIVE); NITRATE,URINE NEGATIVE (NEGATIVE); OCCULT BLOOD,URINE NEGATIVE (NEGATIVE); PH,URINE 5.5 (5.0-8.0); PROTEIN,URINE NEGATIVE (NEGATIVE); UROBILINOGEN,URINE 0.2 mg/dL (0.2-1.0)
[2024-01-14 21:41] LABS: ADD UA MICROSCOPIC YES
[2024-01-14 21:56] LABS: BASOPHILS # (AUTO) 0.04 K/uL (0.00-0.20); BASOPHILS % (AUTO) 0.5 % (0.0-5.0); EOSINOPHILS # (AUTO) 0.18 K/uL (0.00-0.70); EOSINOPHILS % (AUTO) 2.4 % (0.0-8.0); HEMATOCRIT 39.7 % (36-48); IMMATURE GRANULOCYTE ABSOLUTE 0.01 K/uL (0-1); LYMPHOCYTES # (AUTO) 3.4 K/uL (1.0-4.8); LYMPHOCYTES % (AUTO) 43.8 % (21.0-51.0); MEAN CORPUSCULAR HEMOGLOBIN 30.2 pg (27.0-33.0); MEAN CORPUSCULAR HGB CONC 32.7 g/dL (32.0-36.0); MEAN CORPUSCULAR VOLUME 92.3 fL (79-99); MONOCYTES # (AUTO) 0.6 K/uL (0.1-1.0); MONOCYTES % (AUTO) 7.6 % (3.0-13.0); NEUTROPHILS # (AUTO) 3.5 K/uL (1.8-7.7); NEUTROPHILS % (AUTO) 45.6 % (40.0-77.0); PLATELET COUNT (AUTO) 117 K/uL (130-400); RED CELL DISTRIBUTION WIDTH 12.8 % (11.0-15.5); WHITE BLOOD COUNT (AUTO) 7.7 K/uL (4.8-10.8)
[2024-01-14 22:02] LABS: CREATININE 0.6 mg/dL (0.5-1.0)
[2024-01-14 22:03] LABS: BACTERIA,URINE FEW /HPF (None Seen); CALCIUM OXALATE CRYSTALS,UR FEW /LPF (None Seen); MUCUS,URINE RARE LPF (None Seen)
[2024-01-14 22:05] LABS: ALBUMIN 3.9 g/dL (3.5-5.0); BILIRUBIN,TOTAL 0.5 mg/dL (0.2-1.0); TOTAL PROTEIN, SERUM 7.8 g/dL (6.0-8.3)
[2024-01-14 22:05] LABS: RBC,URINE 0-1 /HPF (0-1)
[2024-01-14] MEDS ORDERED: CEPH500B PO (22:44)
[2024-01-14] MEDS: CEFTRIAXONE 1G VIAL IM ONE (23:38)
[2024-01-14] MEDS: KETOROLAC 30MG VIAL (30MG/ML) IM ONE (23:38)
[2024-01-15] MEDS: ONDANSETRON 4MG INJ IVP ONE (00:06)
[2024-01-15] MEDS ORDERED: ACETAMINOPHEN 650 MG SUPPOSITORY RC PRN (01:00)
[2024-01-15] MEDS ORDERED: HYDRALAZINE 20MG/ML VIAL IV PRN (01:00)
[2024-01-15] MEDS ORDERED: LABETALOL 20MG SYG IV PRN (01:00)
[2024-01-15] MEDS: MORPHINE 2 MG SYG IVP PRN (01:30)
[2024-01-15] MEDS: LACTATED RINGERS 1000ML 1,000 ML IV SCH (01:30)
[2024-01-15] MEDS ORDERED: IOHEXOL-350 75 ML VIAL IV ONE (01:42)
[2024-01-15] MEDS ORDERED: SENN-152 PO (02:12)
[2024-01-15] MEDS ORDERED: TRAZ-185 PO (02:12)
[2024-01-15] MEDS ORDERED: LINA290C PO (02:12)
[2024-01-15] MEDS ORDERED: SERT-440 PO (02:12)
[2024-01-15] MEDS ORDERED: PANT40TA54 PO (02:12)
[2024-01-15] MEDS ORDERED: ATOR40TA71 PO (02:12)
[2024-01-15] MEDS: MORPHINE 2 MG SYG IVP ONE (04:27)
[2024-01-15 04:55] VITALS: BP 146/95; PULSE 69; RESP 18
[2024-01-15] MEDS: INSULIN HUMULIN R 100 UNIT/ML 3ML SQ SCH (05:33)
[2024-01-15 08:00] VITALS: BP 113/71; PULSE 64; RESP 16
[2024-01-15] MEDS: PANTOPRAZOLE 40 MG/VIAL IVP SCH (09:12)
[2024-01-15] MEDS: ENOXAPARIN SODIUM 40 MG/0.4 ML SYRINGE SQ SCH (09:14)
[2024-01-15] MEDS: CEFTRIAXONE 2GM VIAL IVPB SCH (09:14)
[2024-01-15] MEDS: SERTRALINE HCL 50 MG TABLET PO SCH (09:30)
[2024-01-15] MEDS ORDERED: TRAZODONE HCL 50 MG TAB PO SCH (09:30)
[2024-01-15 12:00] VITALS: BP 136/85; PULSE 62; RESP 16
[2024-01-15 16:00] VITALS: BP 128/72; PULSE 57; RESP 16
[2024-01-15 20:18] LABS: GAMMA GLUTAMYL TRANSFERASE 42 U/L (5-85)
[2024-01-15 20:46] VITALS: BP 142/81; PULSE 64; RESP 18
[2024-01-15 23:57] VITALS: BP 131/81; PULSE 66; RESP 18
[2024-01-16 04:31] VITALS: BP 126/78; PULSE 61; RESP 18
[2024-01-16 05:29] LABS: BASOPHILS # (AUTO) 0.04 K/uL (0.00-0.20); BASOPHILS % (AUTO) 0.8 % (0.0-5.0); EOSINOPHILS # (AUTO) 0.19 K/uL (0.00-0.70); EOSINOPHILS % (AUTO) 3.8 % (0.0-8.0); HEMATOCRIT 38.2 % (36-48); IMMATURE GRANULOCYTE ABSOLUTE 0.01 K/uL (0-1); LYMPHOCYTES # (AUTO) 2.2 K/uL (1.0-4.8); MEAN CORPUSCULAR HEMOGLOBIN 30.1 pg (27.0-33.0); MEAN CORPUSCULAR HGB CONC 33.2 g/dL (32.0-36.0); MEAN CORPUSCULAR VOLUME 90.5 fL (79-99); MONOCYTES # (AUTO) 0.4 K/uL (0.1-1.0); MONOCYTES % (AUTO) 8.1 % (3.0-13.0); NEUTROPHILS # (AUTO) 2.1 K/uL (1.8-7.7); NEUTROPHILS % (AUTO) 43.1 % (40.0-77.0); PLATELET COUNT (AUTO) 109 K/uL (130-400); RED BLOOD CELL COUNT(AUTO) 4.22 MIL/uL (4.00-5.50); RED CELL DISTRIBUTION WIDTH 12.4 % (11.0-15.5)
[2024-01-16 06:00] LABS: ALBUMIN 3.3 g/dL (3.5-5.0); BILIRUBIN,TOTAL 0.8 mg/dL (0.2-1.0); CREATININE 0.5 mg/dL (0.5-1.0); MAGNESIUM 1.3 mg/dL (1.80-2.40); PHOSPHORUS 4.2 mg/dL (2.5-4.9); POTASSIUM 3.8 mmol/L (3.5-5.1); TOTAL PROTEIN, SERUM 6.9 g/dL (6.0-8.3)
[2024-01-16 07:55] VITALS: BP 137/72; PULSE 60; RESP 17
[2024-01-16 08:00] VITALS: O2SAT 96
[2024-01-16] MEDS: ATORVASTATIN 40 MG TABLET PO SCH (09:00)
[2024-01-16] MEDS: MAGNESIUM 2GM PREMIX 50ML 50 ML IV PRN (09:57)
[2024-01-16] MEDS ORDERED: KCL 20 MEQ ERTAB PO PRN (10:00)
[2024-01-16] MEDS ORDERED: POTASSIUM CHLORIDE 10% ELIXIR 20 MEQ/15 ML UDCUP PO PRN (10:00)
[2024-01-16] MEDS ORDERED: POTASSIUM CHLORIDE 20MEQ/100ML 100 ML IV PRN (10:00)
[2024-01-16] MEDS: TAMSULOSIN HCL 0.4 MG CAP.ER.24H PO SCH (10:09)
[2024-01-16 12:00] VITALS: BP 120/77; PULSE 72; RESP 18
[2024-01-16] MEDS: KETOROLAC 15MG/ML VIAL (15MG/ML) IV ONE (14:40)
[2024-01-16 17:00] VITALS: BP 110/73; PULSE 79; RESP 18
[2024-01-16 20:00] VITALS: BP 122/76; PULSE 91; RESP 17
[2024-01-16] MEDS: METRONIDAZOLE 500MG/100ML BAG IV SCH (20:44)
[2024-01-17] VITALS (7 sets, daily range): BP systolic 123–145; BP diastolic 74–82; PULSE 56–77; RESP 17–20; O2SAT 94
[2024-01-17 04:07] LABS: BASOPHILS # (AUTO) 0.04 K/uL (0.00-0.20); BASOPHILS % (AUTO) 0.7 % (0.0-5.0); EOSINOPHILS # (AUTO) 0.17 K/uL (0.00-0.70); HEMATOCRIT 36.3 % (36-48); IMMATURE GRANULOCYTE ABSOLUTE 0.01 K/uL (0-1); LYMPHOCYTES # (AUTO) 2.5 K/uL (1.0-4.8); LYMPHOCYTES % (AUTO) 45.2 % (21.0-51.0); MEAN CORPUSCULAR HEMOGLOBIN 30.1 pg (27.0-33.0); MEAN CORPUSCULAR HGB CONC 34.2 g/dL (32.0-36.0); MEAN CORPUSCULAR VOLUME 88.1 fL (79-99); MONOCYTES # (AUTO) 0.6 K/uL (0.1-1.0); MONOCYTES % (AUTO) 9.8 % (3.0-13.0); NEUTROPHILS # (AUTO) 2.3 K/uL (1.8-7.7); NEUTROPHILS % (AUTO) 41.1 % (40.0-77.0); PLATELET COUNT (AUTO) 117 K/uL (130-400); RED BLOOD CELL COUNT(AUTO) 4.12 MIL/uL (4.00-5.50); RED CELL DISTRIBUTION WIDTH 12.2 % (11.0-15.5); WHITE BLOOD COUNT (AUTO) 5.6 K/uL (4.8-10.8)
[2024-01-17 04:28] LABS: ALBUMIN 3.3 g/dL (3.5-5.0); CREATININE 0.7 mg/dL (0.5-1.0); POTASSIUM 3.5 mmol/L (3.5-5.1); TOTAL PROTEIN, SERUM 6.9 g/dL (6.0-8.3)
[2024-01-17] MEDS ORDERED: POTASSIUM CHLORIDE 20MEQ/100ML 100 ML IV PRN (06:30)
[2024-01-17] MEDS: POTASSIUM CHLORIDE 20MEQ/100ML 100 ML IV PRN (07:30)
[2024-01-17] MEDS: ONDANSETRON 4MG INJ IVP PRN (10:59)
[2024-01-18] VITALS (27 sets, daily range): BP systolic 129–162; BP diastolic 69–93; PULSE 55–87; RESP 14–20; O2SAT 97–100
[2024-01-18 04:49] LABS: BASOPHILS # (AUTO) 0.04 K/uL (0.00-0.20); BASOPHILS % (AUTO) 0.8 % (0.0-5.0); EOSINOPHILS # (AUTO) 0.17 K/uL (0.00-0.70); EOSINOPHILS % (AUTO) 3.3 % (0.0-8.0); LYMPHOCYTES # (AUTO) 1.9 K/uL (1.0-4.8); LYMPHOCYTES % (AUTO) 37.4 % (21.0-51.0); MEAN CORPUSCULAR HEMOGLOBIN 30.6 pg (27.0-33.0); MEAN CORPUSCULAR HGB CONC 33.8 g/dL (32.0-36.0); MEAN CORPUSCULAR VOLUME 90.3 fL (79-99); MONOCYTES # (AUTO) 0.5 K/uL (0.1-1.0); MONOCYTES % (AUTO) 10.4 % (3.0-13.0); NEUTROPHILS # (AUTO) 2.5 K/uL (1.8-7.7); NEUTROPHILS % (AUTO) 48.1 % (40.0-77.0); PLATELET COUNT (AUTO) 118 K/uL (130-400); RED BLOOD CELL COUNT(AUTO) 4.32 MIL/uL (4.00-5.50); RED CELL DISTRIBUTION WIDTH 12.2 % (11.0-15.5); WHITE BLOOD COUNT (AUTO) 5.1 K/uL (4.8-10.8)
[2024-01-18 05:11] LABS: ALBUMIN 3.4 g/dL (3.5-5.0); CREATININE 0.7 mg/dL (0.5-1.0); POTASSIUM 3.8 mmol/L (3.5-5.1); TOTAL PROTEIN, SERUM 7.2 g/dL (6.0-8.3)
[2024-01-18] MEDS: 0.9%NACL 1000ML 1,000 ML IV ONE (10:22)
[2024-01-18] MEDS ORDERED: LIDOCAINE HCL MPF 1% 5ML VIAL ONE (11:22)
[2024-01-18] MEDS ORDERED: MIDAZOLAM HCL 1 MG/ML 2ML VIAL ONE (11:23)
[2024-01-18] MEDS ORDERED: PROPOFOL 10 MG/ML 20ML VIAL IV ONE (11:23)
[2024-01-18] MEDS ORDERED: ROCURONIUM BROMIDE 10MG/1ML 5ML VL ONE (11:23)
[2024-01-18] MEDS ORDERED: FENTANYL CITRATE PF 50 MCG/1 ML 2ML VIAL ONE (11:24)
[2024-01-18] MEDS ORDERED: ONDANSETRON 4MG INJ ONE (11:58)
[2024-01-18] MEDS ORDERED: DEXAMETHASONE SOD PHOSPHATE 10MG/ML 1ML VIAL ONE (11:58)
[2024-01-18] MEDS ORDERED: NEOSTIGMINE METHYLSULFATE 1MG/ML IV ONE (12:23)
[2024-01-18] MEDS ORDERED: GLYCOPYRROLATE 0.2 MG/ML 5 ML VIAL ONE (12:23)
[2024-01-18] MEDS: SUGAMMADEX SODIUM 200 MG/2 ML VIAL IV ONE (13:45)
[2024-01-18] MEDS: ACETAMINOPHEN 325 MG TAB PO PRN (17:18)
[2024-01-18] MEDS: INSULIN HUMULIN R 100 UNIT/ML 3ML SQ SCH (20:55)
[2024-01-19] VITALS: BP 122/77; PULSE 51; RESP 19
[2024-01-19 04:00] VITALS: BP 149/74; PULSE 57; RESP 20
[2024-01-19 04:51] LABS: BASOPHILS # (AUTO) 0.03 K/uL (0.00-0.20); BASOPHILS % (AUTO) 0.3 % (0.0-5.0); EOSINOPHILS # (AUTO) 0.05 K/uL (0.00-0.70); EOSINOPHILS % (AUTO) 0.6 % (0.0-8.0); HEMATOCRIT 41.6 % (36-48); IMMATURE GRANULOCYTE ABSOLUTE 0.03 K/uL (0-1); LYMPHOCYTES # (AUTO) 2.2 K/uL (1.0-4.8); LYMPHOCYTES % (AUTO) 24.4 % (21.0-51.0); MEAN CORPUSCULAR HEMOGLOBIN 29.5 pg (27.0-33.0); MEAN CORPUSCULAR HGB CONC 33.7 g/dL (32.0-36.0); MEAN CORPUSCULAR VOLUME 87.6 fL (79-99); MONOCYTES # (AUTO) 0.7 K/uL (0.1-1.0); MONOCYTES % (AUTO) 8.2 % (3.0-13.0); NEUTROPHILS # (AUTO) 5.9 K/uL (1.8-7.7); NEUTROPHILS % (AUTO) 66.2 % (40.0-77.0); PLATELET COUNT (AUTO) 149 K/uL (130-400); RED BLOOD CELL COUNT(AUTO) 4.75 MIL/uL (4.00-5.50); RED CELL DISTRIBUTION WIDTH 12.4 % (11.0-15.5); WHITE BLOOD COUNT (AUTO) 8.9 K/uL (4.8-10.8)
[2024-01-19 05:00] LABS: CREATININE 0.7 mg/dL (0.5-1.0); POTASSIUM 3.8 mmol/L (3.5-5.1)
[2024-01-19 08:00] VITALS: BP 157/75; PULSE 60; RESP 16
[2024-01-19 09:15] VITALS: O2SAT 98
[2024-01-19 11:42] VITALS: BP 126/79; PULSE 97; RESP 16
[2024-01-19] MEDS ORDERED: TAMS-1 PO (13:49)
[2024-01-19] MEDS ORDERED: TRAM50TA4 PO (13:49)
[2024-01-19] MEDS ORDERED: CYCL10TA16 PO (13:49)
[2024-01-19] MEDS ORDERED: LEVO750T68 PO (13:54)
== END 2024-01-19 15:05 | disposition home or self-care (01) | DRG 661 ==
LOC: EDH 19:11 → OBSVTOIN 01-15 00:59 → EDHIP 01-15 00:59 → 4DH 01-15 04:55
PROVIDERS: ADMIT Internal Medicine Pulmonary Disease; ATTEND Internal Medicine Pulmonary Disease
PROC: 0TC68ZZ Extirpation of Matter from Right Ureter, Via Natural or Artificial Opening Endoscopic (ICD-10-PCS; 2024-01-18)
PROC: 0T768DZ Dilation of Right Ureter with Intraluminal Device, Via Natural or Artificial Opening Endoscopic (ICD-10-PCS; principal; 2024-01-18 11:34)
DX: N13.6 Pyonephrosis (principal); K21.9 Gastro-esophageal reflux disease without esophagitis; I10 Essential (primary) hypertension; E11.65 Type 2 diabetes mellitus with hyperglycemia; M79.7 Fibromyalgia; E78.00 Pure hypercholesterolemia, unspecified; I87.8 Other specified disorders of veins; K29.70 Gastritis, unspecified, without bleeding; E66.01 Morbid (severe) obesity due to excess calories; K76.0 Fatty (change of) liver, not elsewhere classified; Z87.442 Personal history of urinary calculi; Z68.30 Body mass index [BMI] 30.0-30.9, adult
CPT/HCPCS: 36415; 74018; 74177; 76700; 78227; 80048; 80053; 81001; 82150; 82360; 82948; 82977; 83605; 83690; 83735; 84075; 84100; 84484; 85025; 87088; 93005; 96372; A9537; C1758; C1769; C2617; C9113; G0378; J0696; J1100; J1650; J1815; J1885; J2250; J2270; J2405; J2704; J2710; J3010; J3475; J3480; J3490; J7030; J7120; Q9967; A4216; A4222; A4223; A4358; A4600

== ENCOUNTER → 2024-08-15 | Outpatient (CLI) | payer OTHER, MEDICARE ==
[~2024-08-15] MED LIST changes: -ACET-2079 PO; -ASPI-1197 PO; -ASPI-556 PO; +ATOR40TA71 PO; -BUSP10TA3 PO; -CEPH-578 PO; -CEPH500B PO; -CEPH500C2 PO; +CYCL10TA16 PO; -EXEN2PEN SQ; -INSU100I24 SQ; +IOHEXOL 350 MG/ML 100ML INFUS..BTL IV ONE; -ISOS10TA8 PO; -ISOS30TA92 PO; +LEVO750T68 PO; +LINA290C PO; -METF-446 PO; -METO-408 PO; +PANT40TA54 PO; -PRAV20TA4 PO; -PREG150C PO; +SENN-302 PO; +SERT-440 PO; +TAMS-1 PO; -TAMS0.4C32 PO; -TRAM1TAB2 PO; +TRAZ-185 PO; -TYL3 PO
--- NOTE | 2024-08-15 10:09 | HMCIMG ---
Exam Type: CT ABDOMEN/PELVIS W/WO CONTRAS Clinical Information: FLANK PAIN, HX OF STONES Comparison: None Contrast: 100 cc's Isovue 370 IV, no complications or adverse reactions CT Dose Index (CTDI): 31.60 mGy Dose Length Product (DLP): 1740.80 total mGy-cm Findings: The right kidney is unremarkable. The left kidney shows simple cysts as well as subcentimeter nonobstructing calculi. There are also left renal parenchymal calcifications and posterior cortical focal atrophy probably related to prior infectious or obstructive event. The lung bases are clear. The stomach is unremarkable. It shows no wall thickening. No gross ulceration is seen. It is not overly distended. There are no surrounding inflammatory changes. No wall lesions are identified to suggest cancer. The spleen is unremarkable. It is not enlarged. The pancreas shows normal anatomy. It is not fatty replaced. It shows no lesions. The pancreatic duct is not dilated. The gallbladder is unremarkable. It shows no cholelithiasis. The gallbladder wall is normal in thickness. There is no pericholecystic fluid. The is no acute or chronic inflammation noted. The adrenal glands are unremarkable. There is no enlargement. No lesions are noted. The liver is unremarkable. It shows no focal masses. The appendix is unremarkable. It shows no evidence of inflammation. No appendicolith is seen. The small bowel is unremarkable. There is no evidence of dilatation to suggest obstruction. No evidence of adynamic ileus is seen. There is no small bowel wall thickening to suggest enteritis. There is diverticulosis. There is no evidence of acute inflammation to suggest diverticulitis. The colon is otherwise unremarkable. The urinary bladder is unremarkable. There is no wall thickening to suggest tumor or inflammation. There are no intraluminal calculi. There are no diverticula. There is no evidence of chronic bladder outlet obstruction. There is no evidence of urinary bladder distention to suggest urinary retention. The other pelvic structures are unremarkable. The bony and vascular structures are unremarkable for the patient's age. IMPRESSION: Chronic left renal changes. Normal right kidney. This study was performed using dose reduction techniques to include automated exposure control and/or adjustment of the mA and/or kV according to patient size.
== END | disposition home or self-care (01) ==
LOC: RAH 08:56
PROVIDERS: ATTEND Internal Medicine Gastroenterology
DX: N20.0 Calculus of kidney (principal); R10.9 Unspecified abdominal pain; N26.1 Atrophy of kidney (terminal); K57.90 Diverticulosis of intestine, part unspecified, without perforation or abscess without bleeding
CPT/HCPCS: 74178; Q9967

== ENCOUNTER → 2024-08-20 | Outpatient (CLI) | payer OTHER, MEDICARE ==
[~2024-08-20] MED LIST changes: -IOHEXOL 350 MG/ML 100ML INFUS..BTL IV ONE
[2024-08-20 13:01] LABS: BASOPHILS # (AUTO) 0.05 K/uL (0.00-0.20); EOSINOPHILS # (AUTO) 0.11 K/uL (0.00-0.70); EOSINOPHILS % (AUTO) 2.3 % (0.0-8.0); HEMATOCRIT 39.6 % (36-48); IMMATURE GRANULOCYTE ABSOLUTE 0.01 K/uL (0-1); LYMPHOCYTES % (AUTO) 42.1 % (21.0-51.0); MEAN CORPUSCULAR HEMOGLOBIN 30.1 pg (27.0-33.0); MEAN CORPUSCULAR HGB CONC 32.3 g/dL (32.0-36.0); MEAN CORPUSCULAR VOLUME 93.2 fL (79-99); MONOCYTES # (AUTO) 0.4 K/uL (0.1-1.0); MONOCYTES % (AUTO) 8.7 % (3.0-13.0); NEUTROPHILS # (AUTO) 2.2 K/uL (1.8-7.7); NEUTROPHILS % (AUTO) 45.7 % (40.0-77.0); PLATELET COUNT (AUTO) 122 K/uL (130-400); RED BLOOD CELL COUNT(AUTO) 4.25 MIL/uL (4.00-5.50); RED CELL DISTRIBUTION WIDTH 12.8 % (11.0-15.5); WHITE BLOOD COUNT (AUTO) 4.9 K/uL (4.8-10.8)
[2024-08-20 13:04] LABS: CREATININE 0.6 mg/dL (0.5-1.0); POTASSIUM 3.8 mmol/L (3.5-5.1)
[2024-08-20 13:07] LABS: INR 1.05 (0.85-1.15); PROTHROMBIN TIME 11.7 SEC (9.6-11.6)
[2024-08-20 13:08] LABS: PARTIAL THROMBOPLASTIN TIME 26.9 SEC (26.3-35.5)
== END | disposition home or self-care (01) ==
LOC: LAB 12:23
PROVIDERS: ATTEND Anesthesiology
DX: R53.83 Other fatigue (principal); I25.10 Atherosclerotic heart disease of native coronary artery without angina pectoris; I10 Essential (primary) hypertension; E11.9 Type 2 diabetes mellitus without complications; Z01.818 Encounter for other preprocedural examination
CPT/HCPCS: 36415; 80048; 85025; 85610; 85730

== ENCOUNTER 2025-03-03 15:11 | Emergency (ER) | payer OTHER, MEDICARE ==
[~2025-03-03] VITALS: Ht 154.9 cm; Wt 78.5 kg
[~2025-03-03 15:11] MED LIST changes: -TAMS-1 PO; +TAMS-55 PO
--- NOTE | 2025-03-03 15:27 | ERN ---
ED Note History of Present Illness Stated Complaint: ABD PAIN, BACK PAIN, BLOODY STOOLS Chief Complaint: Abdominal Pain Time Seen by MD: 15:18 Dictation: PATIENT IS A 59-YEAR-OLD FEMALE STATES SHE WAS IN HER USUAL STATE OF HEALTH UNTIL APPROXIMATELY 2 HOURS AGO WHEN SHE WAS OUT SHOPPING AND SHE WENT TO HAVE A BOWEL MOVEMENT. WHEN SHE WIPED SHE NOTICED THERE WAS SOME BLOOD ON THE TOES TOLD TO PAPER. SHE SAID SHE ALSO HAD STARTED HAVING ABDOMINAL CRAMPING TO HER LEFT UPPER AND LOWER QUADRANTS WITHOUT NAUSEA VOMITING NO FEVER NO CHILLS. SHE STATES SHE WENT HOME TO HER AUNT'S HOUSE AND HAD MORE BLOOD IN HER STOOL. SHE DENIES ANY HISTORY OF NSAID ABUSE/HEMORRHOID/CROHN'S OR IBS. SHE HAS HAD A PRIOR COLONOSCOPY AND ENDOSCOPY WITH NO ACUTE FINDINGS. Allergies: Coded Allergies: No Known Drug Allergies (Unverified Allergy, Unknown, 03/12/19) Home Meds Active Scripts Levofloxacin (Levaquin 750Mg Tabs) 750 Mg Tablet, 500 MG PO DAILYBKFST, #3 TAB Prov:THIERNO RIGGS 01/19/24 Cyclobenzaprine HCl (Flexeril) 10 Mg Tab, 10 MG PO TID PRN for PAIN, #15 TAB Prov:THIERNO RIGGS 01/19/24 Tamsulosin HCl (Flomax) 0.4 Mg Cap.er.24h, 0.4 MG PO DAILY, #14 CAPSULE. Prov:THIERNO RIGGS 01/19/24 Reported Medications Pantoprazole Sodium (Pantoprazole Sodium) 40 Mg Tablet.dr, 40 MG PO DAILY, TAB 01/15/24 Linaclotide (Linzess) 290 Mcg Capsule, 290 MCG PO AD, CAP 01/15/24 Trazodone HCl (Trazodone HCl) 50 Mg Tablet, 50 MG PO HSPRN, TAB 01/15/24 Atorvastatin Calcium (Atorvastatin Calcium) 40 Mg Tablet, 40 MG PO DAILY, TAB 01/15/24 Sennosides/Docusate Sodium (Stimulant Laxative Plus Tablet) 8.6 Mg-50 Mg Tablet, 2 EACH PO HS, TAB 01/15/24 Sertraline HCl (Sertraline HCl) 100 Mg Tablet, 100 MG PO DAILY, TAB 01/15/24 Past Medical History Past Medical History: Arthritis, Diabetes-Type II, Fibromyalgia, GERD, High Cholesterol, Hypertension Additional Past Medical Hx: CHRONIC BACK PAIN Surgical History: Hysterectomy, , Unknown Surgical History Other: BILATERAL KNEES Family History: Negative Social History: Negative, Lives with family History: Not Applicable RN Note Reviewed/Agreed w/PFSH: Yes Review of System Dictation CONSTITUTIONAL: NEGATIVE EXCEPT FOR HPI HEAD/FACE: NEGATIVE EXCEPT FOR HPI EENT: NEGATIVE EXCEPT FOR HPI RESPIRATORY: NEGATIVE EXCEPT FOR HPI GASTROINTESTINAL/ABDOMINAL: NEGATIVE EXCEPT FOR HPI ABDOMINAL PAIN LEFT UPPER AND LOWER QUADRANTS, BLOOD ON STOOL GENITOURINARY: NEGATIVE EXCEPT FOR HPI MUSCULOSKELETAL: NEGATIVE EXCEPT FOR HPI INTEGUMENTARY: NEGATIVE EXCEPT FOR HPI NEUROLOGICAL/PSYCH: NEGATIVE EXCEPT FOR HPI HEMATOLOGIC/LYMPHATIC: NEGATIVE EXCEPT FOR HPI ALL SYSTEMS NEGATIVE, EXCEPT NOTED ABOVE. 13 POINT REVIEW OF SYSTEMS ASSESSED AND ALL NEGATIVE EXCEPT FOR ABOVE. Initial Vital Sign VS Vital Signs Date Time Temp Pulse Resp B/P (MAP) Pulse Ox O2 Delivery O2 Flow Rate FiO2 03/03/25 15:13 98.1 76 16 135/87 97 Room Air 0 03/03/25 19:00 21 Physical Exam Dictation VITAL SIGNS REVIEWED GENERAL APPEARANCE: ALERT, ORIENTED X 3, MODERATE ACUTE DISTRESS, WELL DEVELOPED, NOURISHED. OBESE HEAD AND FACE: NON-TRAUMATIC. EYES: PERRL, PINK CONJUNCTIVAS, EYELID NO TRAUMA, ANTERIOR CHAMBER WITH ARCUS SENILIS. EARS: PINNAS INTACT AND NO SIGNS OF TRAUMA OR ERYTHEMA EAR CANALS CLEAR AND NO DISCHARGE TM NO ERYTHEMA NOSE: NO DISCHARGE, NO BLEEDING. OROPHARYNX: MOUTH NORMAL, TONGUE PINK, PHARYNX CLEAR,NO ERYTHEMA, TONSILS NO EXUDATES, NO ABSCESSES NOTED, MUCOUS MEMBRANE MOIST NECK: SUPPLE, NON-TENDER, NO THYROMEGALY, NO MASSES, NO JVD, NO BRUITS BREAST:DEFERRED CHEST:NO TENDERNESS, NO CREPITUS, NO PARADOXICAL MOVEMENT, NO RETRACTIONS LUNGS:CLEAR, WELL-VENTILATED, SYMMETRIC, NO RALES, NO WHEEZING, NO RHONCHI, NO STRIDOR, GOOD BREATH SOUNDS BILATERALLY HEART: REGULAR RATE, REGULAR RHYTHM, NO MURMUR, NO GALLOPS VASCULAR: NO PERIPHERAL EDEMA, ABDOMEN: SOFT, POSITIVE BOWEL SOUNDS, NONDISTENDED, NO GUARDING, EPIGASTRIC/LEFT UPPER QUADRANT AND LEFT LOWER QUADRANT PAIN TENDERNESS WITH PALPATION. NEGATIVE CVAT BILATERALLY RECTAL: DEFERRED GENITAL: DEFERRED NEUROLOGICAL: NORMAL SPEECH, MOTOR FUNCTION INTACT, SENSORY FUNCTION INTACT MUSCULOSKELETAL: NECK NONTENDER, FULL RANGE OF MOTION, BACK NONTENDER, FULL RANGE OF MOTION, EXTREMITIES: NONTENDER, FULL RANGE OF MOTION SKIN: COLOR PINK, DRY, NO TURGOR, NO RASH, NO LACERATIONS, NO ABRASIONS, NO CONTUSIONS. LYMPHATIC: DEFERRED Results (Laboratory/Radiology) Laboratory/Radiology Laboratory Tests Test 03/03/25 15:46 03/03/25 18:00 White Blood Count 7.6 K/uL (4.8-10.8) Red Blood Count 4.36 MIL/uL (4.00-5.50) Hemoglobin 13.0 g/dL (12.0-16.0) Hematocrit 39.2 % (36-48) Mean Corpuscular Volume 89.9 fL (79-99) Mean Corpuscular Hemoglobin 29.8 pg (27.0-33.0) Mean Corpuscular Hemoglobin Concent 33.2 g/dL (32.0-36.0) Red Cell Distribution Width 12.5 % (11.0-15.5) Platelet Count 138 K/uL (130-400) Mean Platelet Volume 12.3 fL (7.5-10.5) H Immature Granulocyte % (Auto) 0.3 % (0-1) Neutrophils (%) (Auto) 55.4 % (40.0-77.0) Lymphocytes (%) (Auto) 35.5 % (21.0-51.0) Monocytes (%) (Auto) 7.1 % (3.0-13.0) Eosinophils (%) (Auto) 1.0 % (0.0-8.0) Basophils (%) (Auto) 0.7 % (0.0-5.0) Neutrophils # (Auto) 4.2 K/uL (1.8-7.7) Lymphocytes # (Auto) 2.7 K/uL (1.0-4.8) Monocytes # (Auto) 0.5 K/uL (0.1-1.0) Eosinophils # (Auto) 0.08 K/uL (0.00-0.70) Basophils # (Auto) 0.05 K/uL (0.00-0.20) Absolute Immature Granulocyte (auto 0.02 K/uL (0-1) Nucleated Red Blood Cells 0.0 % (0.0-0.19) Sodium Level 143 mmol/L (136-145) Potassium Level 3.8 mmol/L (3.5-5.1) Chloride Level 105 mmol/L (101-111) Carbon Dioxide Level 29 mmol/L (21-32) Blood Urea Nitrogen 21 mg/dL (7-18) H Creatinine 0.7 mg/dL (0.5-1.0) Glomerular Filtration Rate Calc 98 mL/min (>90) Random Glucose 146 mg/dL (70-105) H Total Calcium 9.3 mg/dL (8.5-10.1) Lipase 81 U/L (16-77) H Urine Color YELLOW (YELLOW) Urine Appearance CLEAR (CLEAR) Urine pH 5.5 (5.0-8.0) Urine Specific [place] 1.040 (1.001-1.031) Urine Protein 20 mg/dL (NEGATIVE) H Urine Glucose (UA) NEGATIVE mg/dL (NEGATIVE) Urine Ketones NEGATIVE mg/dL (NEGATIVE) Urine Occult Blood SMALL (NEGATIVE) H Urine Nitrate NEGATIVE (NEGATIVE) Urine Bilirubin NEGATIVE mg/dL (NEGATIVE) Urine Urobilinogen 2.0 mg/dL (0.2-1.0) H Urine Leukocyte Esterase 250 Ami/uL (NEGATIVE) H Urine RBC None /HPF (0-1) Urine WBC None /HPF (0-1) Urine Bacteria None /HPF (None Seen) PROCEDURE: ABD PEL W - CT ABDOMEN/PELVIS W/CONTRAST EXAM: CT Abdomen and Pelvis with IV contrast CLINICAL HISTORY: Left upper and lower quadrant tenderness with rectal bleeding. TECHNIQUE: Axial computed tomography images of the abdomen and pelvis with intravenous contrast. CONTRAST: with intravenous contrast. COMPARISON: CT dated January 15, 2024. FINDINGS: LUNG BASES: Mild bibasilar atelectasis. No pleural effusions are seen. LIVER: Mild hepatomegaly, with the craniocaudal length of the right lobe measuring up to 16.5 cm. GALLBLADDER AND BILE DUCTS: The gallbladder appears within normal limits. No radioopaque gallstones are seen. No biliary ductal dilatation is evident. PANCREAS: Unremarkable. SPLEEN: Unremarkable. ADRENAL GLANDS: Unremarkable. KIDNEYS, URETERS, AND BLADDER: The kidneys appear within normal limits, except for the left kidney which demonstrates a 2.8 x 2.6 cm cyst in the interpolar region and a 1.2 x 1.1 cm cyst in the interpolar region, with no interval changes since the prior CT. Additionally, there is a 1 x 0.9 cm calculus in the mid calyx with associated adjacent cortical thinning, as well as 0.45 cm and 0.35 cm calculi in the mid calyx, with no interval changes since the prior CT. There is no hydronephrosis or hydroureter. STOMACH AND BOWEL: A moderate amount of fecal matter is present in the large bowel. Sigmoid diverticulosis is noted without evidence of diverticulitis. Unremarkable appearance of the stomach and bowel otherwise. No evidence of bowel obstruction. No evidence suggesting enteritis or colitis. APPENDIX: No evidence of acute appendicitis on CT examination. PERITONEUM: No free fluid. No free air. LYMPH NODES: No lymphadenopathy is evident. REPRODUCTIVE: The uterus is surgically absent. Otherwise unremarkable as visualized. VASCULATURE: No evidence of abdominal aortic aneurysm. BONES: Mild multilevel degenerative changes in the spine. No aggressive appearing osseous lesion. No acute osseous pathology evident. IMPRESSION: No acute abdominal or pelvic pathology. Stable nonacute findings, as described above. /[facility] Labs Reviewed?: Yes ED Course ED Course Orders Procedure Category Date Status Time Cbc With Differential LAB 03/03/25 Complete 15:24 Urinalysis Profile LAB 03/03/25 Complete 15:24 Occult Blood Stool LAB 03/03/25 Logged Single Only 15:24 Ct Abdomen/Pelvis CT 03/03/25 Resulted W/Contrast 15:24 0.9%Nacl 1000ml (Ns PHA 03/03/25 In Process 1000ml) 15:30 Morphine 2mg Syg PHA 03/03/25 Complete (Morphine 2mg Syg) 15:30 Ondansetron 4mg Inj PHA 03/03/25 Complete (Zofran 4mg Inj) 15:30 Lipase LAB 03/03/25 Complete 15:24 Basic Metabolic Panel LAB 03/03/25 Complete 15:24 Culture Urine IVETTE 03/03/25 In Process 18:13 Iohexol (Omnipaque) PHA 03/03/25 Complete 18:24 Current Medications Medications (Trade) Dose Ordered Sig/Kisha Route PRN Reason Start Time Stop Time Status Last Admin Dose Admin Iohexol (Omnipaque) 35,000 mg STK-MED ONCE IV 03/03/25 18:24 03/03/25 18:24 DC Morphine Sulfate (morPHINE 2MG SYG) 2 mg ONCE IVP 03/03/25 15:30 03/03/25 19:30 DC 03/03/25 15:30 Ondansetron HCl (zoFRAN 4MG INJ) 4 mg ONCE IVP 03/03/25 15:30 03/03/25 19:30 DC 03/03/25 15:30 Sodium Chloride 1,000 ml @ 0 mls/hr ONCE IV 03/03/25 15:30 03/04/25 15:29 03/03/25 18:13 Vital Signs Date Time Temp Pulse Resp B/P (MAP) Pulse Ox O2 Delivery O2 Flow Rate FiO2 03/03/25 19:00 84 16 144/68 100 Room Air* 0 21 03/03/25 15:13 98.1 76 16 135/87 97 Room Air 0 Medical Decision Making MDM MDM: Differential diagnosis: Diverticulitis/constipation slept IBS/Crohn/electrolyte imbalance/dehydration/anemia Rationale: Tests considered and ordered secondary to shared decision making include: CT/labs Previous outside records reviewed: Old ER visits. Risk of complication and/or morbidity or mortality of patient management: None Medications-Per medication reconciliation Need for hospitalization: Patient does not meet criteria for hospitalization. None Need for emergency major/minor surgery: No There are no social concerns with this patient. Prescription drug management Metamucil Prescriptions will include symptomatic care Patient's prior external medical records from other ER visits were reviewed by me as indicated. Prior testing and results from previous visits were reviewed. Prior tests were taken into account with medical decision making and resource utilization, independent historian/historians were used to obtain complete medical history. I independently interpreted the test that were performed, results were reviewed by me and considered findings on radiology if ordered. Medical management and examination interpretation discussions were had by me with other qualified healthcare professionals as indicated for the patient's care. DX & DISP Disposition: Discharge Departure Impression: Primary Impression: Acute constipation Additional Impression: Rectal bleed Condition: Stable Scripts Psyllium Husk (with Sugar) (Metamucil Powder) 3.4 Gram/12 Gram Powder 575 GM PO BID, #300 GM 1 tsp in 8 oz of water twice a day as needed for constipation. Follow up with your primary care doctor. Prov: TRUMAN ALONZO CONSTRUCTION CHECKER 03/03/25 Additional Instructions: Follow-up with primary care provider in 1 to 2 days. Take medications as directed here in the emergency room. Okay to continue home medications unless otherwise discussed during your visit in the emergency room today. Return to your nearest emergency room if symptoms worsen or if there is no improvement. Call 911 if you need immediate assistance. Take Tylenol or Motrin [id number] as needed and if no contraindications are present. Increase oral hydration. A wound culture or urine culture was ordered here in the emergency room department please follow-up with primary care provider and advise them to get repeat ports from our facility. If you had any Geoff wrap/splints that were applied here, please do not remove them until you see your primary care or specialty. Take Metamucil as directed twice a day with 8 oz of water. Follow up with your primary care doctor in 1-2 days. Referrals: MICHELLE BABB M.D. (PCP) I have reviewed the case, and I agree with, Diagnosis and Plan TRUMAN ALONZO NP Mar 03, 2025 15:27
[2025-03-03 16:02] LABS: IMMATURE GRANULOCYTE ABSOLUTE 0.02 K/uL (0-1); NUCLEATED RED BLOOD CELLS 0.0 % (0.0-0.19); PLATELET COUNT (AUTO) 138 K/uL (130-400); RED BLOOD CELL COUNT(AUTO) 4.36 MIL/uL (4.00-5.50); RED CELL DISTRIBUTION WIDTH 12.5 % (11.0-15.5); WHITE BLOOD COUNT (AUTO) 7.6 K/uL (4.8-10.8)
[2025-03-03 16:05] LABS: CREATININE 0.7 mg/dL (0.5-1.0); GLOMERULAR FILTR. RATE CALC 98.0 mL/min (>90); GLUCOSE,RANDOM 146.0 mg/dL (70-105); SODIUM SERUM 143.0 mmol/L (136-145); UREA NITROGEN, BLOOD 21.0 mg/dL (7-18)
[2025-03-03 18:11] LABS: APPEARANCE,URINE CLEAR (CLEAR); GLUCOSE, URINE (UA) NEGATIVE (NEGATIVE); LEUKOCYTE ESTERASE ,URINE 250 Leu/uL (NEGATIVE); NITRATE,URINE NEGATIVE (NEGATIVE); OCCULT BLOOD,URINE SMALL (NEGATIVE)
[2025-03-03 18:12] LABS: ADD UA MICROSCOPIC YES
[2025-03-03] MEDS: 0.9%NACL 1000ML 1,000 ML IV SCH (18:13)
[2025-03-03] MEDS ORDERED: IOHEXOL 350 MG/ML 100ML INFUS..BTL IV ONE (18:24)
--- NOTE | 2025-03-03 19:57 | HMCIMG ---
EXAM: CT Abdomen and Pelvis with IV contrast CLINICAL HISTORY: Left upper and lower quadrant tenderness with rectal bleeding. TECHNIQUE: Axial computed tomography images of the abdomen and pelvis with intravenous contrast. CONTRAST: with intravenous contrast. COMPARISON: CT dated January 15, 2024. FINDINGS: LUNG BASES: Mild bibasilar atelectasis. No pleural effusions are seen. LIVER: Mild hepatomegaly, with the craniocaudal length of the right lobe measuring up to 16.5 cm. GALLBLADDER AND BILE DUCTS: The gallbladder appears within normal limits. No radioopaque gallstones are seen. No biliary ductal dilatation is evident. PANCREAS: Unremarkable. SPLEEN: Unremarkable. ADRENAL GLANDS: Unremarkable. KIDNEYS, URETERS, AND BLADDER: The kidneys appear within normal limits, except for the left kidney which demonstrates a 2.8 x 2.6 cm cyst in the interpolar region and a 1.2 x 1.1 cm cyst in the interpolar region, with no interval changes since the prior CT. Additionally, there is a 1 x 0.9 cm calculus in the mid calyx with associated adjacent cortical thinning, as well as 0.45 cm and 0.35 cm calculi in the mid calyx, with no interval changes since the prior CT. There is no hydronephrosis or hydroureter. STOMACH AND BOWEL: A moderate amount of fecal matter is present in the large bowel. Sigmoid diverticulosis is noted without evidence of diverticulitis. Unremarkable appearance of the stomach and bowel otherwise. No evidence of bowel obstruction. No evidence suggesting enteritis or colitis. APPENDIX: No evidence of acute appendicitis on CT examination. PERITONEUM: No free fluid. No free air. LYMPH NODES: No lymphadenopathy is evident. REPRODUCTIVE: The uterus is surgically absent. Otherwise unremarkable as visualized. VASCULATURE: No evidence of abdominal aortic aneurysm. BONES: Mild multilevel degenerative changes in the spine. No aggressive appearing osseous lesion. No acute osseous pathology evident. IMPRESSION: No acute abdominal or pelvic pathology. Stable nonacute findings, as described above. /[place]
[2025-03-03] MEDS ORDERED: PSYL575P22 PO (20:14)
[2025-03-03 20:20] VITALS: BP 136/61; PULSE 78; RESP 18; TEMP 98.1; O2SAT 100
== END 2025-03-03 20:26 | disposition home or self-care (01) ==
LOC: EDH 15:11
DX: K59.00 Constipation, unspecified (principal); K62.5 Hemorrhage of anus and rectum; E11.9 Type 2 diabetes mellitus without complications; E78.00 Pure hypercholesterolemia, unspecified; I10 Essential (primary) hypertension; M19.90 Unspecified osteoarthritis, unspecified site; M79.7 Fibromyalgia; Z79.899 Other long term (current) drug therapy; Z90.710 Acquired absence of both cervix and uterus; Z98.890 Other specified postprocedural states
CPT/HCPCS: 99285; 74177; 96374; 96375; 80048; 83690; 85025; 87086; 81001; 36415; J2270; J2405; Q9967

== ENCOUNTER 2025-06-17 15:57 | Emergency (ER) | payer OTHER, MEDICAID ==
[~2025-06-17] VITALS: Ht 154.9 cm; Wt 77.1 kg
[~2025-06-17 15:57] MED LIST changes: +PSYL575P22 PO
--- NOTE | 2025-06-17 16:27 | NUR ---
PT STATES WAS DX WITH HTN WAS PREVIOUSLY ON HTN MEDICATION, STOPPED TAKING IT SOME TIME AGO. DOES NOT TAKE ANYTHING NOW.
[2025-06-17 16:53] LABS: IMMATURE GRANULOCYTE ABSOLUTE 0.01 K/uL (0-1); NUCLEATED RED BLOOD CELLS 0.0 % (0.0-0.19); PLATELET COUNT (AUTO) 149 K/uL (130-400); RED BLOOD CELL COUNT(AUTO) 4.86 MIL/uL (4.00-5.50); RED CELL DISTRIBUTION WIDTH 12.6 % (11.0-15.5); WHITE BLOOD COUNT (AUTO) 7.9 K/uL (4.8-10.8)
[2025-06-17 16:59] LABS: CREATININE 0.6 mg/dL (0.5-1.0); GLOMERULAR FILTR. RATE CALC 101.0 mL/min (>90); GLUCOSE,RANDOM 99.0 mg/dL (70-105); SODIUM SERUM 145.0 mmol/L (136-145); UREA NITROGEN, BLOOD 25.0 mg/dL (7-18)
--- NOTE | 2025-06-17 16:59 | EKG ---
[facility] Test Date: 2025-06-17 Test Time: 16:52:34 Pat Name: GENE SCOTT Department: ED Room: Gender: F Lead Business Systems Analyst: [birth year] : 1965 Requested By: HOLLY VAZQUEZ Order Number: [id number] Reading MD: Gilberto Sims Measurements Intervals [place] Rate: 87 P: 43 MN: 146 QRS: -24 QRSD: 87 T: 24 QT: 370 QTc: 446 Interpretive Statements Sinus rhythm Compared to ECG 01/15/2024 01:19:09 No significant changes RSR' IN V1 OR V2, PROBABLY NORMAL VARIANT Electronically Signed On 06-17-2025 18:08:20 CDT by Gilberto Sims Please click the below link to view image of tracing.
--- NOTE | 2025-06-17 17:02 | HMCIMG ---
EXAM: CT Head Without IV contrast. CLINICAL HISTORY: headache TECHNIQUE: Axial computed tomography images of the head/brain without intravenous contrast. COMPARISON: None provided. FINDINGS: BRAIN: No evidence of acute hemorrhage. No mass lesion. No CT evidence for acute territorial infarct. No midline shift or extra-axial collections. Posterior cerebellar benign arachnoid cyst 3.5 x 1.6cm. Mild global atrophy. Moderate to marked calcific atherosclerosis cavernous portions of bilateral internal carotid arteries VENTRICLES: No hydrocephalus. ORBITS: The orbits are unremarkable. SINUSES AND MASTOIDS: The paranasal sinuses and mastoid air cells are clear. BONES: No fracture. SOFT TISSUES: Unremarkable. IMPRESSION: 1. No acute intracranial findings. 2. Posterior cerebellar benign arachnoid cyst measuring 3.5 x 1.6 cm. 3. Mild global atrophy. 4. Moderate to marked calcific atherosclerosis of the cavernous portions of bilateral internal carotid arteries. /[place]
[2025-06-17] MEDS: 0.9% NACL 500ML IV.SOLN 500 ML IV ONE (17:18)
--- NOTE | 2025-06-17 18:54 | ERN ---
ED Note History of Present Illness Stated Complaint: HEADACHE Chief Complaint: Headache Time Seen by MD: 16:36 Dictation: 61-year-old female presenting to the emergency department with headache and nausea over the past few days. No chest pain shortness a breath similar epi sodes in the past but not as bad. Allergies: Coded Allergies: No Known Drug Allergies (Unverified Allergy, Unknown, 03/12/19) Home Meds Active Scripts Psyllium Husk (with Sugar) (Metamucil Powder) 3.4 Gram/12 Gram Powder, 575 GM PO BID, #300 GM 1 tsp in 8 oz of water twice a day as needed for constipation. Follow up with your primary care doctor. Prov:TRUMAN ALONZO 03/03/25 Levofloxacin (Levaquin 750Mg Tabs) 750 Mg Tablet, 500 MG PO DAILYBKFST, #3 TAB Prov:THIERNO RIGGS PAC 01/19/24 Cyclobenzaprine HCl (Flexeril) 10 Mg Tab, 10 MG PO TID PRN for PAIN, #15 TAB Prov:THIERNO RIGGS PAC 01/19/24 Tamsulosin HCl (Flomax) 0.4 Mg Cap.er.24h, 0.4 MG PO DAILY, #14 CAPSULE. Prov:THIERNO RIGGS PAC 01/19/24 Reported Medications Pantoprazole Sodium (Pantoprazole Sodium) 40 Mg Tablet.dr, 40 MG PO DAILY, TAB 01/15/24 Linaclotide (Linzess) 290 Mcg Capsule, 290 MCG PO AD, CAP 01/15/24 Trazodone HCl (Trazodone HCl) 50 Mg Tablet, 50 MG PO HSPRN, TAB 01/15/24 Atorvastatin Calcium (Atorvastatin Calcium) 40 Mg Tablet, 40 MG PO DAILY, TAB 01/15/24 Sennosides/Docusate Sodium (Stimulant Laxative Plus Tablet) 8.6 Mg-50 Mg Tablet, 2 EACH PO HS, TAB 01/15/24 Sertraline HCl (Sertraline HCl) 100 Mg Tablet, 100 MG PO DAILY, TAB 01/15/24 Past Medical History Past Medical History: Arthritis, Diabetes-Type II, Fibromyalgia, GERD, High Cholesterol, Hypertension Additional Past Medical Hx: CHRONIC BACK PAIN Surgical History: Hysterectomy, , Unknown Surgical History Other: BILATERAL KNEES Family History: Negative Social History: Negative, Lives with family History: Not Applicable Review of System Dictation Constitutional: Negative for fever,chills, and weight loss Eyes: Negative for injury, pain,redness, and discharge ENT: Negative for injury,pain or swelling Cardiovascular: Negative for chest pain, palpitations, and edema Respiratory: Negative for shortness of breath, cough, and wheezing, Abdomen/GI: Negative for abdominal pain, nausea, vomiting, diarrhea, and constipation Back: Negative for injury and pain : Negative for injury, bleeding and discharge MS/Extremity: Negative for injury and deformity Skin: Negative for rash, and discoloration Neuro: Per HPI Initial Vital Sign VS Vital Signs Date Time Temp Pulse Resp B/P (MAP) Pulse Ox O2 Delivery O2 Flow Rate FiO2 06/17/25 15:58 98.6 88 18 138/96 97 06/17/25 16:26 Room Air* 0 21 Physical Exam Dictation General: awake, alert, NAD Head/Face: Normocephalic, atraumatic Eyes: PERRL, EOMI, vision at baseline ENT: oral cavity clear, TMs clear, no signs of infection Neck: Trachea midline, supple, no nuchal rigidity Cardiovascular: RRR, normal S1/S2, No MRGs, no JVD Respiratory: CTAB, no respiratory distress, No rales or wheezes Abdomen: Soft, non-tender, non-distended, normal bowel sounds, no guarding or rebound. Skin: Warm, dry, normal turgor, no rash MS/Extremity: Pulses equal, no cyanosis, neurovascular intact, FROM Neuro: COAx4, GCS 15, strength 5/5, CN 2-12 intact, normal cerebellar exam, normal gait, Psych: Normal behavior, mood, and affect normal Results (Laboratory/Radiology) Laboratory/Radiology Laboratory Tests Test 06/17/25 16:45 White Blood Count 7.9 K/uL (4.8-10.8) Red Blood Count 4.86 MIL/uL (4.00-5.50) Hemoglobin 14.6 g/dL (12.0-16.0) Hematocrit 44.2 % (36-48) Mean Corpuscular Volume 90.9 fL (79-99) Mean Corpuscular Hemoglobin 30.0 pg (27.0-33.0) Mean Corpuscular Hemoglobin Concent 33.0 g/dL (32.0-36.0) Red Cell Distribution Width 12.6 % (11.0-15.5) Platelet Count 149 K/uL (130-400) Mean Platelet Volume 11.7 fL (7.5-10.5) H Immature Granulocyte % (Auto) 0.1 % (0-1) Neutrophils (%) (Auto) 60.3 % (40.0-77.0) Lymphocytes (%) (Auto) 30.6 % (21.0-51.0) Monocytes (%) (Auto) 7.6 % (3.0-13.0) Eosinophils (%) (Auto) 0.9 % (0.0-8.0) Basophils (%) (Auto) 0.5 % (0.0-5.0) Neutrophils # (Auto) 4.8 K/uL (1.8-7.7) Lymphocytes # (Auto) 2.4 K/uL (1.0-4.8) Monocytes # (Auto) 0.6 K/uL (0.1-1.0) Eosinophils # (Auto) 0.07 K/uL (0.00-0.70) Basophils # (Auto) 0.04 K/uL (0.00-0.20) Absolute Immature Granulocyte (auto 0.01 K/uL (0-1) Nucleated Red Blood Cells 0.0 % (0.0-0.19) Sodium Level 145 mmol/L (136-145) Potassium Level 4.4 mmol/L (3.5-5.1) Chloride Level 107 mmol/L (101-111) Carbon Dioxide Level 31 mmol/L (21-32) Blood Urea Nitrogen 25 mg/dL (7-18) H Creatinine 0.6 mg/dL (0.5-1.0) Glomerular Filtration Rate Calc 101 mL/min (>90) Random Glucose 99 mg/dL (70-105) Total Calcium 8.9 mg/dL (8.5-10.1) Troponin I High Sensitivity 5 ng/L (4-50) EKG Comment: Heart rate 87 normal sinus rhythm normal intervals ED Course ED Course Orders Procedure Category Date Status Time 12 Lead Ekg Tracing- EKG 06/17/25 Resulted Technical 16:36 Basic Metabolic Panel LAB 06/17/25 Complete 16:36 Cbc With Differential LAB 06/17/25 Complete 16:36 Troponin I High LAB 06/17/25 Complete Sensitivity 16:36 Ct Head/Brain W/O CT 06/17/25 Resulted Contrast 16:36 Morphine 4mg Syg PHA 06/17/25 Complete (Morphine 4mg Syg) 17:09 Ondansetron 4mg Inj PHA 06/17/25 Complete (Zofran 4mg Inj) 17:09 0.9% Nacl 500ml PHA 06/17/25 Complete Iv.Soln (Ns 500ml 17:30 Current Medications Medications (Trade) Dose Ordered Sig/Kisha Route PRN Reason Start Time Stop Time Status Last Admin Dose Admin Morphine Sulfate (morPHINE 4MG SYG) 4 mg ONCE STAT IVP 06/17/25 17:09 06/17/25 17:13 DC 06/17/25 17:18 Ondansetron HCl (zoFRAN 4MG INJ) 4 mg ONCE STAT IVP 06/17/25 17:09 06/17/25 17:13 DC 06/17/25 17:18 Sodium Chloride 500 ml @ 0 mls/hr ONCE ONCE IV 06/17/25 17:30 06/17/25 17:31 DC 06/17/25 17:18 Vital Signs Date Time Temp Pulse Resp B/P (MAP) Pulse Ox O2 Delivery O2 Flow Rate FiO2 06/17/25 17:31 98.8 97 13 138/96 96 Room Air* 0 21 06/17/25 16:26 98.8 84 18 137/93 99 Room Air* 0 21 06/17/25 15:58 98.6 88 18 138/96 97 Medical Decision Making MDM MDM: Differential diagnosis: Rationale: Tests considered and ordered secondary to shared decision making include: Previous outside records reviewed: Old ER visits. Risk of complication and/or morbidity or mortality of patient management: None Medications-Per medication reconciliation Need for hospitalization: Patient does not meet criteria for hospitalization. Need for emergency major/minor surgery: No There are no social concerns with this patient. Prescription drug management Prescriptions will include symptomatic care Patient's prior external medical records from other ER visits were reviewed by me as indicated. Prior testing and results from previous visits were reviewed. Prior tests were taken into account with medical decision making and resource utilization, independent historian/historians were used to obtain complete medical history. I independently interpreted the test that were performed, results were reviewed by me and considered findings on radiology if ordered. Medical management and examination interpretation discussions were had by me with other qualified healthcare professionals as indicated for the patient's care. 61-year-old female with acute headache stable exam negative workup CT scan of the head negative, symptoms improved, advised the of chronic cyst noted, and vascular disease we will follow up with primary care doctor.NIHSS-0 DX & DISP Disposition: Discharge Departure Impression: Primary Impression: Acute headache Condition: Stable Referrals: MICHELLE BABB M.D. (PCP) HOLLY VAZQUEZ MD Jun 17, 2025 18:54
[2025-06-17 18:59] VITALS: BP 123/86; PULSE 78; RESP 13; TEMP 98.8; O2SAT 98
== END 2025-06-17 19:09 | disposition home or self-care (01) ==
LOC: EDH 15:57
DX: R51.9 Headache, unspecified (principal); R11.0 Nausea; M19.90 Unspecified osteoarthritis, unspecified site; E11.9 Type 2 diabetes mellitus without complications; M79.7 Fibromyalgia; K21.9 Gastro-esophageal reflux disease without esophagitis; E78.00 Pure hypercholesterolemia, unspecified; I10 Essential (primary) hypertension; G89.29 Other chronic pain; Z90.710 Acquired absence of both cervix and uterus; Z98.890 Other specified postprocedural states; Z79.899 Other long term (current) drug therapy
CPT/HCPCS: 99285; 96374; 96375; 70450; 84484; 80048; 85025; 36415; 93005; J7040; J2405; J2270

== ENCOUNTER 2025-07-22 15:59 | Emergency (ER) | payer OTHER, MEDICAID ==
[~2025-07-22] VITALS: Ht 154.9 cm; Wt 77.1 kg
--- NOTE | 2025-07-22 16:36 | ERN ---
ED Note History of Present Illness Stated Complaint: DIZZY, HEADACHE Chief Complaint: Headache Time Seen by MD: 16:09 Dictation: PATIENT IS A 60-YEAR-OLD FEMALE COMING IN WITH A AN CONSTANT OCCIPITAL HEADACHE FOR THE LAST MONTH. NO FEVER NO CHILLS NO NAUSEA VOMITING. SHE STATES THE HEADACHE WE WILL RESPOND MINIMALLY WITH TYLENOL. SHE STATES SHE HAS ALREADY BEEN TO THE EMERGENCY ROOM AT [facility] ON MAY. SHE THEN SAY SHE WENT HOME AND SAW HER PRIMARY CARE DOCTOR WHO TOLD HER HE NEEDED TO SEND HER TO A NEUROLOGISTS HOWEVER HE HAS NOT MADE THE REFERRAL. SHE IS ALERT AND ORIENTED X4 SPEECH IS CLEAR NIH IS 0. SHE IS NOTED TO HAVE TENDERNESS WITH SPASM TO HER CERVICAL PARASPINOUS MUSCLES Allergies: Coded Allergies: No Known Drug Allergies (Unverified Allergy, Unknown, 03/12/19) Home Meds Active Scripts Psyllium Husk (with Sugar) (Metamucil Powder) 3.4 Gram/12 Gram Powder, 575 GM PO BID, #300 GM 1 tsp in 8 oz of water twice a day as needed for constipation. Follow up with your primary care doctor. Prov:TRUMAN ALONZO 03/03/25 Levofloxacin (Levaquin 750Mg Tabs) 750 Mg Tablet, 500 MG PO DAILYBKFST, #3 TAB Prov:THIERNO RIGGS [facility] 01/19/24 Cyclobenzaprine HCl (Flexeril) 10 Mg Tab, 10 MG PO TID PRN for PAIN, #15 TAB Prov:THIERNO RIGGS PAC 01/19/24 Tamsulosin HCl (Flomax) 0.4 Mg Cap.er.24h, 0.4 MG PO DAILY, #14 CAPSULE. Prov:THIERNO RIGGS PAC 01/19/24 Reported Medications Pantoprazole Sodium (Pantoprazole Sodium) 40 Mg Tablet.dr, 40 MG PO DAILY, TAB 01/15/24 Linaclotide (Linzess) 290 Mcg Capsule, 290 MCG PO AD, CAP 01/15/24 Trazodone HCl (Trazodone HCl) 50 Mg Tablet, 50 MG PO HSPRN, TAB 01/15/24 Atorvastatin Calcium (Atorvastatin Calcium) 40 Mg Tablet, 40 MG PO DAILY, TAB 01/15/24 Sennosides/Docusate Sodium (Stimulant Laxative Plus Tablet) 8.6 Mg-50 Mg Tablet, 2 EACH PO HS, TAB 01/15/24 Sertraline HCl (Sertraline HCl) 100 Mg Tablet, 100 MG PO DAILY, TAB 01/15/24 Past Medical History Past Medical History: Diabetes-Type II Additional Past Medical Hx: FYBROMYALSIA Surgical History: Hysterectomy Surgical History Other: KNEE Family History: Negative Social History: Negative, Lives with family History: Not Applicable RN Note Reviewed/Agreed w/PFSH: Yes Review of System Dictation CONSTITUTIONAL: NEGATIVE EXCEPT FOR HPI HEAD/FACE: NEGATIVE EXCEPT FOR HPI EENT: NEGATIVE EXCEPT FOR HPI RESPIRATORY: NEGATIVE EXCEPT FOR HPI GASTROINTESTINAL/ABDOMINAL: NEGATIVE EXCEPT FOR HPI GENITOURINARY: NEGATIVE EXCEPT FOR HPI MUSCULOSKELETAL: NEGATIVE EXCEPT FOR HPI INTEGUMENTARY: NEGATIVE EXCEPT FOR HPI NEUROLOGICAL/PSYCH: NEGATIVE EXCEPT FOR HPI OCCIPITAL HEADACHE HEMATOLOGIC/LYMPHATIC: NEGATIVE EXCEPT FOR HPI ALL SYSTEMS NEGATIVE, EXCEPT NOTED ABOVE. 13 POINT REVIEW OF SYSTEMS ASSESSED AND ALL NEGATIVE EXCEPT FOR ABOVE. Initial Vital Sign VS Vital Signs Date Time Temp Pulse Resp B/P (MAP) Pulse Ox O2 Delivery O2 Flow Rate FiO2 07/22/25 16:02 97.3 92 18 114/88 99 Room Air 07/22/25 16:27 0 21 Physical Exam Dictation VITAL SIGNS REVIEWED GENERAL APPEARANCE: ALERT, ORIENTED X 3, MODERATE ACUTE DISTRESS, WELL DEVELOPED, NOURISHED. HEAD AND FACE: NON-TRAUMATIC. EYES: PERRL, PINK CONJUNCTIVAS, EYELID NO TRAUMA, ANTERIOR CHAMBER WITH ARCUS SENILIS. EARS: PINNAS INTACT AND NO SIGNS OF TRAUMA OR ERYTHEMA EAR CANALS CLEAR AND NO DISCHARGE TM NO ERYTHEMA NOSE: NO DISCHARGE, NO BLEEDING. OROPHARYNX: MOUTH NORMAL, TONGUE PINK, PHARYNX CLEAR,NO ERYTHEMA, TONSILS NO EXUDATES, NO ABSCESSES NOTED, MUCOUS MEMBRANE MOIST NECK: SUPPLE, NON-TENDER, NO THYROMEGALY, NO MASSES, NO JVD, NO BRUITS BREAST:DEFERRED CHEST:NO TENDERNESS, NO CREPITUS, NO PARADOXICAL MOVEMENT, NO RETRACTIONS LUNGS:CLEAR, WELL-VENTILATED, SYMMETRIC, NO RALES, NO WHEEZING, NO RHONCHI, NO STRIDOR, GOOD BREATH SOUNDS BILATERALLY HEART: REGULAR RATE, REGULAR RHYTHM, NO MURMUR, NO GALLOPS VASCULAR: NO PERIPHERAL EDEMA, ABDOMEN: SOFT, POSITIVE BOWEL SOUNDS, NONDISTENDED, NO GUARDING, NONTENDER, NO REBOUND, NO MASSES NO HEPATOMEGALY, NO SPLENOMEGALY, NO STEEL'S SIGN, NO HERNIAS. RECTAL: DEFERRED GENITAL: DEFERRED NEUROLOGICAL: NORMAL SPEECH, MOTOR FUNCTION INTACT, SENSORY FUNCTION INTACT NIH IS 0 MUSCULOSKELETAL: BILATERAL OCCIPITAL TENDERNESS. MIDLINE SPINE PAIN, FULL RANGE OF MOTION, BACK NONTENDER, FULL RANGE OF MOTION, EXTREMITIES: NONTENDER, FULL RANGE OF MOTION SKIN: COLOR PINK, DRY, NO TURGOR, NO RASH, NO LACERATIONS, NO ABRASIONS, NO CONTUSIONS. LYMPHATIC: DEFERRED Results (Laboratory/Radiology) Laboratory/Radiology Laboratory Tests Test 07/22/25 16:58 White Blood Count 6.1 K/uL (4.8-10.8) Red Blood Count 4.60 MIL/uL (4.00-5.50) Hemoglobin 13.9 g/dL (12.0-16.0) Hematocrit 41.7 % (36-48) Mean Corpuscular Volume 90.7 fL (79-99) Mean Corpuscular Hemoglobin 30.2 pg (27.0-33.0) Mean Corpuscular Hemoglobin Concent 33.3 g/dL (32.0-36.0) Red Cell Distribution Width 12.7 % (11.0-15.5) Platelet Count 146 K/uL (130-400) Mean Platelet Volume 11.6 fL (7.5-10.5) H Immature Granulocyte % (Auto) 0.3 % (0-1) Neutrophils (%) (Auto) 55.6 % (40.0-77.0) Lymphocytes (%) (Auto) 32.7 % (21.0-51.0) Monocytes (%) (Auto) 8.8 % (3.0-13.0) Eosinophils (%) (Auto) 1.8 % (0.0-8.0) Basophils (%) (Auto) 0.8 % (0.0-5.0) Neutrophils # (Auto) 3.4 K/uL (1.8-7.7) Lymphocytes # (Auto) 2.0 K/uL (1.0-4.8) Monocytes # (Auto) 0.5 K/uL (0.1-1.0) Eosinophils # (Auto) 0.11 K/uL (0.00-0.70) Basophils # (Auto) 0.05 K/uL (0.00-0.20) Absolute Immature Granulocyte (auto 0.02 K/uL (0-1) Nucleated Red Blood Cells 0.0 % (0.0-0.19) Sodium Level 147 mmol/L (136-145) H Potassium Level 3.7 mmol/L (3.5-5.1) Chloride Level 106 mmol/L (101-111) Carbon Dioxide Level 29 mmol/L (21-32) Blood Urea Nitrogen 19 mg/dL (7-18) H Creatinine 0.7 mg/dL (0.5-1.0) Glomerular Filtration Rate Calc 98 mL/min (>90) Random Glucose 104 mg/dL (70-105) Total Calcium 8.6 mg/dL (8.5-10.1) Troponin I High Sensitivity 6 ng/L (4-50) OMPARISON: CT scan of the brain from 06/17/2025. FINDINGS: Brain parenchyma: No acute intraparenchymal hemorrhage, mass lesion, or territorial infarct is identified. Mild global parenchymal volume loss is present with prominence of the sulci and ventricles, in keeping with the patients age, unchanged from the prior examination. White matter: Scattered hypodense foci in the bilateral periventricular and subcortical white matter are compatible with chronic small vessel ischemic disease. These appear similar to the prior CT. Ventricles and cisterns: Ventricular system is mildly prominent but proportionate to cortical atrophy, without hydrocephalus. Basal cisterns and sylvian fissures are patent, with no midline shift or mass effect. Extra-axial spaces: No extra-axial fluid collection or acute hemorrhage is seen. Posterior fossa: A benign-appearing posterior cerebellar arachnoid cyst measuring approximately 3.5 x 1.6 cm is again demonstrated without associated mass effect or interval change. Brainstem and cerebellum are otherwise unremarkable. Sellar/parasellar region: Pituitary region and parasellar structures are unremarkable on this noncontrast study. CP angles and IACs: Cerebellopontine angle cisterns and internal auditory canals are clear without mass or abnormal density. Skull and sinuses: Calvarium and skull base show no acute fracture or destructive lesion. Moderate to marked calcific atherosclerosis of the cavernous segments of the bilateral internal carotid arteries is again noted. Paranasal sinuses and mastoid air cells are clear. Orbits: Orbits and visualized intraorbital contents are unremarkable. Scalp and soft tissues: No significant scalp swelling or soft tissue abnormality is identified. IMPRESSION: * No CT evidence of acute intracranial hemorrhage, territorial infarct, mass effect, or hydrocephalus to account for the patients persistent occipital headache. In the setting of ongoing symptoms or new focal neurological deficits, MRI of the brain may be considered for further evaluation. * Stable benign posterior fossa arachnoid cyst (posterior cerebellar, approximately 3.5 x 1.6 cm) without significant mass effect. * Mild global cerebral volume loss with chronic small vessel ischemic changes in the periventricular and subcortical white matter, unchanged from the CT brain of 06/17/2025. * Moderate to marked calcific atherosclerosis of the cavernous segments of the bilateral internal carotid arteries, stable. /[place] Labs Reviewed?: Yes ED Course ED Course Orders Procedure Category Date Status Time Cyclobenzaprine Hcl PHA 07/22/25 Complete (Cyclobenzaprine Hcl 17:00 Hydrocodone/Apap PHA 07/22/25 Complete 5/325 ([place] 5/325mg) 17:00 Ct Head/Brain W/O CT 07/22/25 Resulted Contrast 16:37 Cbc With Differential LAB 07/22/25 Complete 16:37 12 Lead Ekg Tracing- EKG 07/22/25 Logged Technical 16:37 Troponin I High LAB 07/22/25 Complete Sensitivity 16:37 Basic Metabolic Panel LAB 07/22/25 Complete 16:37 Current Medications Medications (Trade) Dose Ordered Sig/Kisha Route PRN Reason Start Time Stop Time Status Last Admin Dose Admin Acetaminophen/ Hydrocodone Bitart (NORco 5/325MG) 1 tab ONCE ONCE PO 07/22/25 17:00 07/22/25 17:01 DC Cyclobenzaprine HCl (Cyclobenzaprine HCl) 10 mg ONCE ONCE PO 07/22/25 17:00 07/22/25 17:01 DC Vital Signs Date Time Temp Pulse Resp B/P (MAP) Pulse Ox O2 Delivery O2 Flow Rate FiO2 07/22/25 16:27 98.2 73 18 131/90 97 Room Air* 0 21 07/22/25 16:02 97.3 92 18 114/88 99 Room Air 1755/PATIENT IS HEMODYNAMICALLY STABLE. WORKUP IS ESSENTIALLY UNREMARKABLE X- RAY MILDLY ELEVATED SODIUM AND DEHYDRATION. CT IS NEGATIVE EXCEPT FOR A CHRONIC ARACHNOID CYST SHE HAS HAD IN THE PAST DISCHARGED HOME WITH TENSION HEADACHE AND NEUROLOGICALLY INTACT Medical Decision Making MDM MDM: DIFFERENTIAL DIAGNOSIS: ACS/AMI/CVA/HYPERTENSION/ELECTROLYTE IMBALANCE/DEHYDRATION/TENSION HEADACHE RATIONALE: TESTS CONSIDERED AND ORDERED SECONDARY TO SHARED DECISION MAKING INCLUDE: EKG/LABS/RADIOLOGY PREVIOUS OUTSIDE RECORDS REVIEWED: OLD ER VISITS. RISK OF COMPLICATION AND/OR MORBIDITY OR MORTALITY OF PATIENT MANAGEMENT: NONE MEDICATIONS-PER MEDICATION RECONCILIATION NEED FOR HOSPITALIZATION: PATIENT DOES NOT MEET CRITERIA FOR HOSPITALIZATION. NONE NEED FOR EMERGENCY MAJOR/MINOR SURGERY: NO THERE ARE NO SOCIAL CONCERNS WITH THIS PATIENT. PRESCRIPTION DRUG MANAGEMENT [employer] PRESCRIPTIONS WILL INCLUDE SYMPTOMATIC CARE PATIENT'S PRIOR EXTERNAL MEDICAL RECORDS FROM OTHER ER VISITS WERE REVIEWED BY ME INDICATED. PRIOR TESTING AND RESULTS FROM PREVIOUS VISITS WERE REVIEWED. PRIOR TESTS WERE TAKEN INTO ACCOUNT WITH MEDICAL DECISION MAKING AND RESOURCE UTILIZATION, INDEPENDENT HISTORIAN/HISTORIANS WERE USED TO OBTAIN COMPLETE MEDICAL HISTORY. I INDEPENDENTLY INTERPRETED THE TEST THAT WERE PERFORMED, RESULTS WERE REVIEWED BY ME AND CONSIDERED FINDINGS ON RADIOLOGY IF ORDERED. MEDICAL MANAGEMENT AND EXAMINATION INTERPRETATION DISCUSSIONS WERE HAD BY ME WITH OTHER QUALIFIED HEALTHCARE PROFESSIONALS INDICATED FOR THE PATIENT'S CARE. DX & DISP Disposition: Discharge Departure Impression: Primary Impression: Tension headache Additional Impressions: Hypernatremia, Dehydration Condition: Stable Scripts Butalb/Acetaminophen/Caffeine (Fioricet) 50 Mg-325 Mg-40 Mg Tab 2 TAB PO Q4PRN for HEADACHE, #15 TAB 0 Refills TWO TABLETS BY MOUTH EVERY 4 HOURS NEEDED FOR HEADACHE. MAXIMUM SIX TABLETS IN 24 HOUR Prov: TRUMAN ALONZO 07/22/25 Additional Instructions: Follow-up with primary care provider in 1 to 2 days. Take medications as directed here in the emergency room. Okay to continue home medications unless otherwise discussed during your visit in the emergency room today. Return to your nearest emergency room if symptoms worsen or if there is no improvement. Call 911 if you need immediate assistance. Take Tylenol or Motrin [id number] as needed and if no contraindications are present. Increase oral hydration. A wound culture or urine culture was ordered here in the emergency room department please follow-up with primary care provider and advise them to get repeat ports from our facility. If you had any Geoff wrap/splints that were applied here, please do not remove them until you see your primary care or specialty. Take Fioricet as directed for your headaches. Increase your water intake. Follow up with the your primary care doctor or call neurologist for an appointment in the next 1-2 days. Referrals: MICHELLE BABB M.D. (PCP) WALLACE KIMBLE MD Time of Disposition: 17:54 I have reviewed the case, and I agree with, Diagnosis and Plan TRUMAN ALONZO [facility] Jul 22, 2025 16:36
[2025-07-22 17:07] LABS: IMMATURE GRANULOCYTE ABSOLUTE 0.02 K/uL (0-1); NUCLEATED RED BLOOD CELLS 0.0 % (0.0-0.19); PLATELET COUNT (AUTO) 146 K/uL (130-400); RED BLOOD CELL COUNT(AUTO) 4.60 MIL/uL (4.00-5.50); RED CELL DISTRIBUTION WIDTH 12.7 % (11.0-15.5); WHITE BLOOD COUNT (AUTO) 6.1 K/uL (4.8-10.8)
[2025-07-22 17:22] LABS: CREATININE 0.7 mg/dL (0.5-1.0); GLOMERULAR FILTR. RATE CALC 98.0 mL/min (>90); GLUCOSE,RANDOM 104.0 mg/dL (70-105); SODIUM SERUM 147.0 mmol/L (136-145); UREA NITROGEN, BLOOD 19.0 mg/dL (7-18)
--- NOTE | 2025-07-22 17:38 | HMCIMG ---
EXAM: CT SCAN OF THE BRAIN WITHOUT CONTRAST CLINICAL HISTORY: Persistent occipital headache for one month. TECHNIQUE: Axial computed tomography images of the brain were obtained without intravenous contrast. Coronal and sagittal reformatted images were generated for review. RADIATION DOSE: Not provided. CONTRAST: No intravenous contrast administered. COMPARISON: CT scan of the brain from 06/17/2025. FINDINGS: Brain parenchyma: No acute intraparenchymal hemorrhage, mass lesion, or territorial infarct is identified. Mild global parenchymal volume loss is present with prominence of the sulci and ventricles, in keeping with the patients age, unchanged from the prior examination. White matter: Scattered hypodense foci in the bilateral periventricular and subcortical white matter are compatible with chronic small vessel ischemic disease. These appear similar to the prior CT. Ventricles and cisterns: Ventricular system is mildly prominent but proportionate to cortical atrophy, without hydrocephalus. Basal cisterns and sylvian fissures are patent, with no midline shift or mass effect. Extra-axial spaces: No extra-axial fluid collection or acute hemorrhage is seen. Posterior fossa: A benign-appearing posterior cerebellar arachnoid cyst measuring approximately 3.5 x 1.6 cm is again demonstrated without associated mass effect or interval change. Brainstem and cerebellum are otherwise unremarkable. Sellar/parasellar region: Pituitary region and parasellar structures are unremarkable on this noncontrast study. CP angles and IACs: Cerebellopontine angle cisterns and internal auditory canals are clear without mass or abnormal density. Skull and sinuses: Calvarium and skull base show no acute fracture or destructive lesion. Moderate to marked calcific atherosclerosis of the cavernous segments of the bilateral internal carotid arteries is again noted. Paranasal sinuses and mastoid air cells are clear. Orbits: Orbits and visualized intraorbital contents are unremarkable. Scalp and soft tissues: No significant scalp swelling or soft tissue abnormality is identified. IMPRESSION: * No CT evidence of acute intracranial hemorrhage, territorial infarct, mass effect, or hydrocephalus to account for the patients persistent occipital headache. In the setting of ongoing symptoms or new focal neurological deficits, MRI of the brain may be considered for further evaluation. * Stable benign posterior fossa arachnoid cyst (posterior cerebellar, approximately 3.5 x 1.6 cm) without significant mass effect. * Mild global cerebral volume loss with chronic small vessel ischemic changes in the periventricular and subcortical white matter, unchanged from the CT brain of 06/17/2025. * Moderate to marked calcific atherosclerosis of the cavernous segments of the bilateral internal carotid arteries, stable. /[place]
[2025-07-22] MEDS ORDERED: FIORIT PO (17:56)
[2025-07-22] MEDS: CYCLOBENZAPRINE HCL 10 MG TABLET PO ONE (17:57)
[2025-07-22] MEDS: HYDROcodone/APAP 5/325 1 TAB TABLET PO ONE (17:57)
[2025-07-22 18:06] VITALS: BP 121/71; PULSE 98; RESP 14; TEMP 98.6; O2SAT 98
== END 2025-07-22 18:15 | disposition home or self-care (01) ==
LOC: EDH 15:59
DX: G44.209 Tension-type headache, unspecified, not intractable (principal); E86.0 Dehydration; E87.0 Hyperosmolality and hypernatremia; E11.9 Type 2 diabetes mellitus without complications; Z79.899 Other long term (current) drug therapy; Z90.710 Acquired absence of both cervix and uterus
CPT/HCPCS: 36415; 70450; 80048; 84484; 85025; 99284